=== PATIENT | male | born 1955 | race Two or more races ===

== ENCOUNTER 2021-07-07 06:19 | Outpatient (REF) | payer OTHER, SELFPAY ==
[2021-07-07 12:02] LABS: Blood Urea Nitrogen 11 mg/dL (9-16); Estimated Glomerular Filt Rate > 60
== END 2021-07-07 06:20 | disposition home or self-care (01) ==
LOC: HO.HMGCLDS 06:19
PROVIDERS: PCP Internal Medicine; Visit Provider Internal Medicine
DX: R10.31 Right lower quadrant pain (principal); R10.32 Left lower quadrant pain
CPT/HCPCS: 36415; 82565; 84520

== ENCOUNTER 2021-07-13 13:23 | Outpatient (REF) | payer OTHER, SELFPAY ==
--- NOTE | ~2021-07-13 | CT_ITS ---
EXAMINATION: CT ABDOMEN AND PELVIS WITH CONTRAST CLINICAL INFORMATION: Right lower quadrant pain COMPARISON: Previous CT of the abdomen and pelvis May 2014 TECHNIQUE: Multidetector volumetric images were obtained from the superior aspect of the liver through the pubic symphysis following administration 85 mL of Omnipaque 350 intravenous contrast. Sagittal and coronal reformatted images were obtained on the technologist's workstation. Oral contrast: Yes This CT examination was performed using dose optimization techniques as appropriate, variously including the following: *Automated exposure control *Adjustment of mA and/or kV according to patient size (this includes techniques or standardized protocols for targeted exams where dose is matched to indication/reason for exam; i.e. extremities or head) *Use of iterative reconstruction technique DLP: 495 mGy-cm FINDINGS: LUNG BASES: There is a 1 cm calcified left lower lobe nodule suggestive of a calcified granuloma or hamartoma. This is unchanged from 2013. The lung bases are otherwise clear. LIVER, GALLBLADDER, AND BILIARY TREE: The liver is normal in size, shape, and attenuation. No focal hepatic lesion or biliary ductal dilatation is present. The gallbladder is unremarkable with no evidence of radiopaque gallstones, gallbladder wall thickening, or obvious pericholecystic inflammatory changes. PANCREAS: Unremarkable. SPLEEN: Unremarkable. ADRENAL GLANDS: Unremarkable. KIDNEYS AND URETERS: The kidneys are normal in size, shape, and attenuation. No hydronephrosis, hydroureter, or calculi seen. There is a small 5 mm low-attenuation lesion in the lower pole the left kidney. This is difficult to characterize due to small size but probably represents a cyst. No follow-up needed. BLADDER: Unremarkable. GASTROINTESTINAL TRACT: There is diverticulosis of the colon. No evidence of diverticulitis is seen. The small and large bowel are otherwise unremarkable. The appendix is unremarkable. The stomach is unremarkable. ABDOMINAL WALL: There is an umbilical hernia containing fat. LYMPH NODES: Normal. VASCULAR: Unremarkable. PELVIC VISCERA: The prostate gland is slightly enlarged measuring 4 x 5.5 cm in AP and transverse dimension. OSSEOUS STRUCTURES: There are degenerative changes of the spine. CT/CT abdomen pelvis w con IMPRESSION: Diverticulosis. No evidence of diverticulitis. Probable small left renal cyst. Enlarged prostate gland. Stable calcified left lower lobe pulmonary nodule.
[2021-07-13] MEDS: iohexoL 350 MG/ML 100 ML INFUS..BTL IV (15:56)
== END 2021-07-13 13:24 | disposition home or self-care (01) ==
LOC: HO.CT 13:23
PROVIDERS: Visit Provider Internal Medicine
DX: R10.31 Right lower quadrant pain (principal); R10.32 Left lower quadrant pain
CPT/HCPCS: 74177; Q9967

== ENCOUNTER 2021-09-30 09:29 | Outpatient (REF) | payer OTHER, SELFPAY ==
[2021-09-30 11:47] LABS: Binax Internal Control QC Valid; Binax Now Covid-19 Ag Negative (Negative)
== END 2021-09-30 09:30 | disposition home or self-care (01) ==
LOC: HO.LAB 09:29
PROVIDERS: Visit Provider Internal Medicine
DX: Z20.822 Contact with and (suspected) exposure to COVID-19 (principal)
CPT/HCPCS: C9803

== ENCOUNTER 2022-12-13 09:37 | Outpatient (REF) | payer OTHER, SELFPAY ==
[2022-12-13 11:39] LABS: MANUAL DIFF FLAG NO
[2022-12-13 12:03] LABS: Basophils Percent Auto 0.3 % (0-2); Eosinophils Absolute Auto 0.1 X10*3/uL (0.0-0.4); Eosinophils Percent Auto 1.5 % (0-4); Hematocrit 45.2 % (42.0-52.0); Hemoglobin 15.6 g/dl (14.0-18.0); Imm Gran Abs Auto 0.02 X10*3/uL (0.00-0.03); Imm Gran Pct Auto 0.3 % (0.0-0.4); Lymphocytes Absolute Auto 1.8 X10*3/uL (1.2-4.9); Lymphocytes Percent Auto 24.4 % (20-40); Mean Corpuscular HGB Conc 34.5 g/dl (31.0-36.0); Mean Corpuscular Hemoglobin 31.7 pg (27.0-33.0); Mean Corpuscular Volume 91.9 fL (80.0-98.0); Mean Platelet Volume 9.4 fL (9.4-12.4); Monocytes Absolute Auto 0.4 X10*3/uL (0.1-1.2); Monocytes Percent Auto 5.4 % (2-11); Neutrophils Absolute Auto 5.1 x10*3/uL (2.0-8.3); Neutrophils Percent Auto 68.1 % (45-73); Platelet Count 276 X10*3/uL (160-400); Red Blood Count 4.92 X10*6/uL (4.60-5.80); Red Cell Distribution Width 13.8 % (11.0-16.0); White Blood Count 7.4 X10*3/uL (4.8-10.8)
[2022-12-13 12:20] LABS: Estimated Average Glucose 151 mg/dL; Hemoglobin A1c % 6.9 %
[2022-12-13 13:03] LABS: Alanine Aminotransferase 18 U/L (0-40); Anion Gap 12 (12-20); Aspartate Amino Transferase 18 U/L (5-37); Blood Urea Nitrogen 12 mg/dL (9-16); Calcium 9.3 mg/dL (8.4-10.2); Carbon Dioxide 28 mmol/L (22-29); Chloride 103 mmol/L (96-108); Cholesterol 204 mg/dL; Estimated Glomerular Filt Rate > 60; Glucose Fasting 132 mg/dL (60-99); HDL Cholesterol 36 mg/dL; LDL Cholesterol Calculated 118 mg/dl; Potassium 4.4 mmol/L (3.3-5.1); Sodium 139 mmol/L (135-145); Triglycerides 254 mg/dL
== END 2022-12-13 09:38 | disposition home or self-care (01) ==
LOC: HO.HMGCLDS 09:37
PROVIDERS: PCP Internal Medicine; Visit Provider Internal Medicine
DX: Z00.01 Encounter for general adult medical examination with abnormal findings (principal); D12.6 Benign neoplasm of colon, unspecified; E66.9 Obesity, unspecified; R73.01 Impaired fasting glucose
CPT/HCPCS: 36415; 80048; 80061; 83036; 84450; 84460; 85025

== ENCOUNTER 2022-12-14 12:49 | Inpatient (IN) | payer OTHER, SELFPAY ==
--- NOTE | ~2022-12-14 | FL_ITS ---
EXAMINATION: FL SMALL BOWEL SERIES CLINICAL INFORMATION: Small bowel obstruction. COMPARISON: None available. TECHNIQUE: Following a pet care attendant image of the abdomen, thin barium contrast was administered orally, and interval abdominal radiographs were performed to assess for contrast progression through the small bowel. Several images were obtained. FINDINGS: Audit Control Clerk image of the abdomen demonstrates distended proximal small bowel loops with the largest loop in the left upper quadrant measuring 6.1 cm. Following oral administration of Gastrografin patient vomited everything. Thin barium (2 cups) was administered and sequential images were obtained. There is good opacification and distention of stomach. There is slow progression of oral contrast from the stomach into duodenum and very slow progression through the proximal dilated small bowel loops. At 205 minutes of imaging contrast still lies in the proximal jejunal loops. At this point the exam was terminated and patient was shifted to the OR for surgery. FLUOROSCOPY TIME: 0.0 minutes. DOSE AREA PRODUCT: 0 uGy-m2 (microgray-meter squared) FL/FL small bowel follow through IMPRESSION: Findings consistent with proximal small bowel obstruction with no passage of barium through the proximal jejunal loops. The exam was terminated and patient was shifted to the OR for surgery.
--- NOTE | ~2022-12-14 | CT_ITS ---
EXAMINATION: CT ABDOMEN AND PELVIS WITHOUT CONTRAST CLINICAL INFORMATION: Abdominal distention with pain COMPARISON: CT abdomen and pelvis 07/13/2020 TECHNIQUE: Multidetector volumetric imaging was performed from the superior aspect of the liver through the pubic symphysis. Sagittal and coronal reformatted images were obtained on the technologist's workstation. This CT examination was performed using dose optimization techniques as appropriate, variously including the following: *Automated exposure control *Adjustment of mA and/or kV according to patient size (this includes techniques or standardized protocols for targeted exams where dose is matched to indication/reason for exam; i.e. extremities or head) *Use of iterative reconstruction technique DLP: 669 mGy-cm FINDINGS: LUNG BASES: The visualized lung bases are unremarkable. LIVER, GALLBLADDER, AND BILIARY TREE: The liver is normal in size and shape, but demonstrates decreased attenuation consistent with hepatic steatosis. No focal hepatic lesion or biliary ductal dilatation is present. The gallbladder is unremarkable with no evidence of radiopaque gallstones, gallbladder wall thickening, or obvious pericholecystic inflammatory changes. PANCREAS: Unremarkable. SPLEEN: Unremarkable. ADRENAL GLANDS: Unremarkable. KIDNEYS AND URETERS: The kidneys are normal in size, shape, and attenuation. No hydronephrosis, hydroureter, or calculi seen. No perinephric stranding. BLADDER: Unremarkable. GASTROINTESTINAL TRACT: Moderate diverticular changes are present in the colon without diverticulitis. The appendix is unremarkable. There is evidence of small bowel obstruction with dilatation of multiple small bowel loops the largest of which measure about 4.5 cm. The distal ileum is of small caliber the exact site of obstruction is not ascertained. No pneumatosis is present. No portal venous gas. ABDOMINAL WALL: No significant hernia is appreciated. Small periumbilical hernia seen containing only fat. LYMPH NODES: No retroperitoneal lymphadenopathy. VASCULAR: Unremarkable. PELVIC VISCERA: There is mild BPH. Seminal vesicles appear normal. Small amount of free fluid is present in the pelvis. OSSEOUS STRUCTURES: Degenerative changes in the spine most marked at L5-S1. CT/CT abdomen pelvis wo IV con IMPRESSION: 1. Small bowel obstruction with transition point somewhere in the mid small bowel.. 2. Incidental note made of hepatic steatosis, colonic diverticulosis without diverticulitis and mild BPH. Fleischner guidelines were followed.
[2022-12-14 12:53] VITALS: BP 163/95; PULSE 88; RESP 19; TEMP 36.6; O2SAT 96; BMI 31.2
--- NOTE | 2022-12-14 12:55 | ED_ITS ---
HPI - Abdominal Pain General Chief Complaint: Abdominal Pain <DIMA Ray - Last Filed: 12/14/22 12:58> Stated Complaint: Stomach Pain Bloated <DIMA Ray - Last Filed: 12/14/22 12:58> Time Seen by Provider: 12/14/22 15:21 <DIMA Ray - Last Filed: 12/14/22 12:58> Source: patient <DIMA Martines Last Filed: 12/14/22 17:17> Mode of arrival: ambulatory <DIMA Martines Last Filed: 12/14/22 17:17> Limitations: no limitations <DIMA Martines Last Filed: 12/14/22 17:17> History of Present Illness HPI narrative: Patient is a 67 year old assigned male at with a history of BPH presenting to the emergency department today with worsening abdominal pain. Patient states that over the last 2 days he has had worsening abdominal distention. Patient states that he has not had a complete bowel movement in days. Patient denies any history of abdominal surgeries. Patient states that he forced himself to vomit twice and that helped relieve some of the pressure. Patient denies any dizziness, lightheadedness, nausea, fever, chills, blurry vision, double vision, loss of vision, chest pain, difficulty breathing, shortness of breath, back pain, night sweats, pain with urination, increased urinary frequency, increased urinary urgency, blood in his urine or stool, syncope or a near syncopal episode, recent trauma or falls, bowel incontinence, bladder incontinence, bladder retention, or any other complaints at this time. <DIMA Martines - Last Filed: 12/14/22 17:17> MD elicited complaint: abdominal pain <DIMA Martines Last Filed: 12/14/22 17:17> Radiation: none <DIMA Martines Last Filed: 12/14/22 17:17> Exacerbating factors: nothing <DIMA Martines Last Filed: 12/14/22 17:17> Relieving factors: vomiting <DIMA Martines Last Filed: 12/14/22 17:17> Associated symptoms: nausea, vomiting and constipation <DIMA Martines Last Filed: 12/14/22 17:17> Related Data Home Medications: Home Medications Medication Instructions Recorded Confirmed tadalafil 20 mg tablet 5 mg PO DAILY 12/13/22 12/14/22 <DIMA Ray Last Filed: 12/14/22 12:58> Allergies/Adverse Reactions: Allergies Allergy/AdvReac Type Severity Reaction Status Date / Time No Known Allergies Allergy Verified 12/14/22 12:53 <DIMA Ray Last Filed: 12/14/22 12:58> Review of Systems Constitutional: Reports no additional constitutional complaints, Denies chills, Denies fever(s) and Denies night sweats <DIMA Martines Last Filed: 12/14/22 17:17> Eyes: Reports no additional eye complaints, Denies blurry vision, Denies change in vision, Denies diplopia, Denies eye discharge, Denies loss of vision and Denies eye pain <DIMA Martines Last Filed: 12/14/22 17:17> Denies dizziness <DIMA Martines Last Filed: 12/14/22 17:17> Cardiovascular: Reports no additional cardiovascular complaints, Denies chest pain, Denies lightheadedness, Denies Loss of Consciousness and Denies dyspnea <DIMA Martines Last Filed: 12/14/22 17:17> Respiratory: Reports no additional respiratory complaints and Denies dyspnea <DIMA Martines Last Filed: 12/14/22 17:17> Gastrointestinal: Reports no additional gastrointestinal complaints, Reports abdominal pain, Denies melena, Denies hematochezia, Denies change in bowel habits, Denies change in stool character, Reports constipation and Reports nausea <DIMA Martines Last Filed: 12/14/22 17:17> Genitourinary: Reports no additional male genitourinary complaints, Denies hematuria, Denies oliguria, Denies difficulty urinating, Denies dysuria, Denies urinary frequency, Denies urinary hesitancy, Denies urinary incontinence and Denies uri nary urgency <DIMA Martines Last Filed: 12/14/22 17:17> Musculoskeletal: Reports no additional musculoskeletal complaints, Denies numbness and Denies tingling <DIMA Martines - Last Filed: 12/14/22 17:17> Denies dizziness, Denies loss of vision, Denies numbness and Denies t ingling <DIMA Martines - Last Filed: 12/14/22 17:17> Psychiatric: Reports no additional psychiatric complaints <DIMA Martines - Last Filed: 12/14/22 17:17> Endocrine: Reports no additional endocrine complaints <DIMA Martines - Last Filed: 12/14/22 17:17> Hematologic/Lymphatic: Reports no additional hematologic/lymphatic complaints <DIMA Martines - Last Filed: 12/14/22 17:17> Allergic/Immunologic: Reports no additional allergic/immunologic complaints <DIMA Martines - Last Filed: 12/14/22 17:17> PMFSH Past Medical History Attestation statement: The following information was validated with the patient. <DIMA Martines - Last Filed: 12/14/22 17:17> Source: old records reviewed and nursing notes reviewed <DIMA Martines - Last Filed: 12/14/22 17:17> Medical History: Medical History Benign prostatic hyperplasia Obesity (BMI 30.0-34.9) Tubular adenoma of colon <DIMA Ray - Last Filed: 12/14/22 12:58> Surgical History: Surgical History History of vasectomy <DIMA Ray - Last Filed: 12/14/22 12:58> Family History Family History: Family History Sister Rheumatoid arthritis Son Autism <DIMA Ray - Last Filed: 12/14/22 12:58> Social History Social History: Social History Housing: Apartment Tobacco use type: Cigar e-Cigarette/Vaping Use: Never Used Second Hand Smoke Exposure: No Substance Use Type: Marijuana Advance Directives: No Advance Directives Information Provided: No Current occupational status: employed Cognitive needs: No Hearing needs: No Vision needs: Yes <DIMA Ray Last Filed: 12/14/22 12:58> Physical Exam ED Vital Signs: Vital Signs - 24 hr 12/14/22 12:53 12/14/22 15:21 Temperature 98 F 97.9 F Pulse Rate 88 71 Respiratory Rate 19 18 Blood Pressure 163/95 H 165/84 H Pulse Oximetry 96 97 Oxygen Delivery Method Room Air Room Air BMI result Body Mass Index 31.2 <DIMA Ray - Last Filed: 12/14/22 12:58> Vital Signs - 24 hr 12/14/22 12:53 12/14/22 15:21 Temperature 98 F 97.9 F Pulse Rate 88 71 Respiratory Rate 19 18 Blood Pressure 163/95 H 165/84 H Pulse Oximetry 96 97 Oxygen Delivery Method Room Air Room Air BMI result Body Mass Index 31.2 <DIMA Martines - Last Filed: 12/14/22 17:17> Const General: cooperative, no acute distress, alert and awake <DIMA Martines - Last Filed: 12/14/22 17:17> Nutritional Appearance: well nourished <DIMA Martines - Last Filed: 12/14/22 17:17> Orientation/consciousness: patient oriented x3 <DIMA Martines - Last Filed: 12/14/22 17:17> Limitations: no limitations <DIMA Martines - Last Filed: 12/14/22 17:17> HENMT Head: Yes normal to inspection and Yes atraumatic <DIMA Martines - Last Filed: 12/14/22 17:17> Ears: hearing grossly normal bilaterally and external ears normal <DIMA Martines - Last Filed: 12/14/22 17:17> General nose exam: Normal external nose present, no nasal discharge noted and no epistaxis <DIMA Martines Last Filed: 12/14/22 17:17> Face and sinus: Yes normal facial exam, No abrasion and No laceration <DIMA Martines - Last Filed: 12/14/22 17:17> Mouth: Normal oral and palatal mucosa present, no drooling and no muffled voice <DIMA Martines - Last Filed: 12/14/22 17:17> Eyes General: appearance normal, both eyes and all related structures <Melissa Marie PA - Last Filed: 12/14/22 17:17> Periorbital: periorbital findings normal <Melissa Marie PA - Last Filed: 12/14/22 17:17> Eyelids: Yes eyelids normal <Melissa Marie PA - Last Filed: 12/14/22 17:17> Conjunctivae: conjunctivae normal <Melissa Marie PA - Last Filed: 12/14/22 17:17> Pupils: Equal, round and reactive pupils present <Melissa Marie PA - Last Filed: 12/14/22 17:17> EOM: EOMs intact bilaterally <Melissa Marie PA - Last Filed: 12/14/22 17:17> Neck Neck: Yes normal visual inspection, Yes full ROM and Yes no lymphadenopathy <Melissa Marie PA - Last Filed: 12/14/22 17:17> Chest Chest palpation & inspection: normal inspection of the chest <Melissa Marie PA - Last Filed: 12/14 17:17> Resp Effort & Inspection: normal respiratory effort and able to speak in complete sentences <Kendy Marie PA - Last Filed: 12/14/22 17:17> Auscultation: clear to auscultation bilaterally <Melissa Marie PA - Last Filed: 12/14/22 17:17> Cardio Rate: regular rate <Melissa Marie PA - Last Filed: 12/14/22 17:17> Rhythm: regular rhythm <Melissa Marie PA - Last Filed: 12/14/22 17:17> GI Inspection: Yes distended <Melissa Marie PA - Last Filed: 12/14/22 17:17> Neuro General: patient oriented x3 and moves all extremities <Melissa Marie PA - Last Filed: 12/14/22 17:17> Cranial nerves: Yes Equal, round and reactive pupils present <Melissa Marie PA - Last Filed: 12/14/22 17:17> Cognition (Neuro): normal cognition <Melissa Marie PA - Last Filed: 12/14/22 17:17> Motor exam (neuro): 5/5 motor strength present throughout <Melissa Marie, PA - Last Filed: 12/14/22 17:17> Sensory Exam: Normal double simultaneous stimulation for sensation <Melissamilady PedroDIMA helm - Last Filed: 12/14/22 17:17> Coordination: [id number] test normal <Melissamilady PedroDIMA helm - Last Filed: 12/14/22 17:17> Extrem General: Yes normal to inspection, Yes full ROM and Yes capillary refill normal <DIMA Martines - Last Filed: 12/14/22 17:17> Psych Appearance: grossly normal <Melissamilady PedroDIMA helm - Last Filed: 12/14/22 17:17> Mental Status: mental status grossly normal <DIMA Martines - Last Filed: 12/14/22 17:17> Affect: normal affect <DIMA Martines - Last Filed: 12/14/22 17:17> Attitude: cooperative <DIMA Martines - Last Filed: 12/14/22 17:17> Thought process: Normal thought process present <DIMA Martines - Last Filed: 12/14/22 17:17> Thought content: Normal thought content present <DIMA Martines - Last Filed: 12/14/22 17:17> Insight: Good insight present (Psych) <DIMA Martines - Last Filed: 12/14/22 17:17> Course Course Course Narrative: RME - 67 yo male with history of obesity, BPH who presents to the ER for 2-3 days of increasing abdominal distention and pains. Reports only brief relief with self-induced vomiting. Not having normal BMs, very small amount yesterday. Has not eaten since yesterday. Plan: labs and CT scan abd/pelvis <DIMA Ray - Last Filed: 12/14/22 12:58> Medical Decision Making Medical Decision Making MDM Narrative: Patient is a 67 year old assigned male at with a history of BPH presenting to the emergency department today with abdominal pain. Patient's physical exam showed a distended abdomen. Patient's blood work was unremarkable. Patient's abdomen/pelvis CT showed an acute small bowel obstruction. I spoke to the surgical team who agreed to admission. I explained my physical exam findings as well as all test results to the patient. I answered all questions asked by e patient. Patient verbalized agreement and understanding with this treatment plan and admission. <DIMA Martines - Last Filed: 12/14/22 17:17> Differential Diagnosis Differential Diagnoses: The differential diagnosis associated with the presentation includes <DIMA Martines - Last Filed: 12/14/22 17:17> small bowel obstruction <DIMA Martines - Last Filed: 12/14/22 17:17> Consult Healthcare Provider Management of the patient was discussed with: Block Operator (spoke to the surgical team who agreed to admission) <DIMA Martines - Last Filed: 12/14/22 17:17> Lab Data MDM Lab Attestation statement: I reviewed the patient's lab results. <DIMA Martines - Last Filed: 12/14/22 17:17> Result Diagrams: 12/14/22 13:31 12/14/22 13:31 <DIMA Ray - Last Filed: 12/14/22 12:58> Labs: Lab Results 12/14/22 12/14/22 Range/Units 13:31 13:31 WBC 6.6 (4.8-10.8) X10*3/uL RBC 4.82 (4.60-5.80) X10*6/uL Hgb 15.1 (14.0-18.0) g/dl Hct 44.0 (42.0-52.0) % MCV 91.3 (80.0-98.0) fL MCH 31.3 (27.0-33.0) pg MCHC 34.3 (31.0-36.0) g/dl RDW 13.4 (11.0-16.0) % Plt Count 256 (160-400) X10*3/uL MPV 8.8 L (9.4-12.4) fL Immature Gran % (Auto) 0.3 (0.0-0.4) % Neut % (Auto) 69.1 (45-73) % Lymph % (Auto) 22.5 (20-40) % [place] % (Auto) 6.8 (2-11) % Eos % (Auto) 1.1 (0-4) % Baso % (Auto) 0.2 (0-2) % Lymph # (Auto) 1.5 (1.2-4.9) X10*3/uL [place] # (Auto) 0.5 (0.1-1.2) X10*3/uL Eos # (Auto) 0.1 (0.0-0.4) X10*3/uL Baso # (Auto) 0.0 (0.0-0.2) X10*3/uL Abs Immat Gran (auto) 0.02 (0.00-0.03) X10*3/uL Absolute Neuts (auto) 4.6 (2.0-8.3) x10*3/uL Absolute Nucleated RBC 0.000 (0.0-0.012) X10*3/uL Nucleated RBC % (auto) 0.0 (0.0-0.2) /100WBC Sodium 139 (135-145) mmol/L Potassium 4.6 (3.3-5.1) mmol/L Chloride 102 (96-108) mmol/L Carbon Dioxide 27 (22-29) mmol/L Anion Gap 15 (12-20) BUN 13 (9-16) mg/dL Creatinine 1.08 (0.5-1.4) mg/dL Estim Creat Clear Calc 77.9 Estimated GFR > 60 Random Glucose 142 H (60-115) mg/dL Calcium 9.2 (8.4-10.2) mg/dL Magnesium 2.6 (1.6-2.6) mg/dL Total Bilirubin 0.9 (0.0-1.0) mg/dL Direct Bilirubin 0.2 (0.0-0.5) mg/dL AST 14 (5-37) U/L ALT 14 (0-40) U/L Alkaline Phosphatase 55 (39-117) U/L Total Protein 7.0 (6.5-8.0) g/dL Albumin 4.2 (3.5-5.0) g/dL <DIMA Ray - Last Filed: 12/14/22 12:58> Lab Results 12/14/22 12/14/22 Range/Units 13:31 13:31 WBC 6.6 (4.8-10.8) X10*3/uL RBC 4.82 (4.60-5.80) X10*6/uL Hgb 15.1 (14.0-18.0) g/dl Hct 44.0 (42.0-52.0) % MCV 91.3 (80.0-98.0) fL MCH 31.3 (27.0-33.0) pg MCHC 34.3 (31.0-36.0) g/dl RDW 13.4 (11.0-16.0) % Plt Count 256 (160-400) X10*3/uL MPV 8.8 L (9.4-12.4) fL Immature Gran % (Auto) 0.3 (0.0-0.4) % Neut % (Auto) 69.1 (45-73) % Lymph % (Auto) 22.5 (20-40) % [place] % (Auto) 6.8 (2-11) % Eos % (Auto) 1.1 (0-4) % Baso % (Auto) 0.2 (0-2) % Lymph # (Auto) 1.5 (1.2-4.9) X10*3/uL [place] # (Auto) 0.5 (0.1-1.2) X10*3/uL Eos # (Auto) 0.1 (0.0-0.4) X10*3/uL Baso # (Auto) 0.0 (0.0-0.2) X10*3/uL Abs Immat Gran (auto) 0.02 (0.00-0.03) X10*3/uL Absolute Neuts (auto) 4.6 (2.0-8.3) x10*3/uL Absolute Nucleated RBC 0.000 (0.0-0.012) X10*3/uL Nucleated RBC % (auto) 0.0 (0.0-0.2) /100WBC Sodium 139 (135-145) mmol/L Potassium 4.6 (3.3-5.1) mmol/L Chloride 102 (96-108) mmol/L Carbon Dioxide 27 (22-29) mmol/L Anion Gap 15 (12-20) BUN 13 (9-16) mg/dL Creatinine 1.08 (0.5-1.4) mg/dL Estim Creat Clear Calc 77.9 Estimated GFR > 60 Random Glucose 142 H (60-115) mg/dL Calcium 9.2 (8.4-10.2) mg/dL Magnesium 2.6 (1.6-2.6) mg/dL Total Bilirubin 0.9 (0.0-1.0) mg/dL Direct Bilirubin 0.2 (0.0-0.5) mg/dL AST 14 (5-37) U/L ALT 14 (0-40) U/L Alkaline Phosphatase 55 (39-117) U/L Total Protein 7.0 (6.5-8.0) g/dL Albumin 4.2 (3.5-5.0) g/dL <DIMA Martines - Last Filed: 12/14/22 17:17> Independent Interpretation I performed an independent interpretation of an: CT Scan <DIMA Martines - Last Filed: 12/14/22 17:17> Interpretation: My interpretation is in agreement with the radiologist's impression of this imaging study. ----- EXAMINATION: CT ABDOMEN AND PELVIS WITHOUT CONTRAST? CLINICAL INFORMATION: Abdominal distention with pain? COMPARISON: CT abdomen and pelvis 07/13/2020? TECHNIQUE: Multidetector volumetric imaging was performed from the superior aspect of the liver through the pubic symphysis. Sagittal and coronal reformatted images were obtained on the technologist's workstation.? This CT examination was performed using dose optimization techniques as appropriate, variously including the following: *Automated exposure control *Adjustment of mA and/or kV according to patient size (this includes techniques or standardized protocols for targeted exams where dose is matched to indication/reason for exam; i.e. extremities or head) *Use of iterative reconstruction technique DLP: 669 mGy-cm FINDINGS: LUNG BASES: The visualized lung bases are unremarkable.? LIVER, GALLBLADDER, AND BILIARY TREE: The liver is normal in size and shape, but demonstrates decreased attenuation consistent with hepatic steatosis.? No focal hepatic lesion or biliary ductal dilatation is present. The gallbladder is unremarkable with no evidence of radiopaque gallstones, gallbladder wall thickening, or obvious pericholecystic inflammatory changes.? PANCREAS: Unremarkable.? SPLEEN: Unremarkable.? ADRENAL GLANDS: Unremarkable.? KIDNEYS AND URETERS: The kidneys are normal in size, shape, and attenuation. No hydronephrosis, hydroureter, or calculi seen. No perinephric stranding. ? BLADDER: Unremarkable.? GASTROINTESTINAL TRACT: Moderate diverticular changes are present in the colon without diverticulitis. The appendix is unremarkable. There is evidence of small bowel obstruction with dilatation of multiple small bowel loops the largest of which measure about 4.5 cm. The distal ileum is of small caliber the exact site of obstruction is not ascertained. No pneumatosis is present. No portal venous gas. ABDOMINAL WALL: No significant hernia is appreciated. Small periumbilical hernia seen containing only fat. LYMPH NODES: No retroperitoneal lymphadenopathy. VASCULAR: Unremarkable. PELVIC VISCERA: There is mild BPH. Seminal vesicles appear normal. Small amount of free fluid is present in the pelvis. ? OSSEOUS STRUCTURES: Degenerative changes in the spine most marked at L5-S1.? CT/CT abdomen pelvis wo IV con IMPRESSION: 1.? Small bowel obstruction with transition point somewhere in the mid small bowel.. 2.? Incidental note made of hepatic steatosis, colonic diverticulosis without diverticulitis and mild BPH. ? Fleischner guidelines were followed Dictated By: Stephen Jessica MD Signed By: Electronically signed by Stephen Jessica MD 12/14/22 [id number] <DIMA Martines - Last Filed: 12/14/22 17:17> Critical Care Time Critical Care Time Critical Care Time: Yes <DIMA Martines - Last Filed: 12/14/22 17:17> Total Critical Care Time: 30 <DIMA Martines - Last Filed: 12/14/22 17:17> Attestation: I spent 30 minutes of Critical Care Time with this patient. This does not include time spent on separately reported billable procedures. <IDMA Martines - Last Filed: 12/14/22 17:17> Discharge Plan Discharge Clinical Impression: Small bowel obstruction <DIMA Ray - Last Filed: 12/14/22 12:58> Patient Disposition: Admitted As Inpatient <DIMA Ray - Last Filed: 12/14/22 12:58>
[2022-12-14 13:34] LABS: MANUAL DIFF FLAG NO
[2022-12-14 13:37] LABS: Basophils Percent Auto 0.2 % (0-2); Eosinophils Absolute Auto 0.1 X10*3/uL (0.0-0.4); Eosinophils Percent Auto 1.1 % (0-4); Hemoglobin 15.1 g/dl (14.0-18.0); Imm Gran Abs Auto 0.02 X10*3/uL (0.00-0.03); Imm Gran Pct Auto 0.3 % (0.0-0.4); Lymphocytes Absolute Auto 1.5 X10*3/uL (1.2-4.9); Lymphocytes Percent Auto 22.5 % (20-40); Mean Corpuscular HGB Conc 34.3 g/dl (31.0-36.0); Mean Corpuscular Hemoglobin 31.3 pg (27.0-33.0); Mean Corpuscular Volume 91.3 fL (80.0-98.0); Mean Platelet Volume 8.8 fL (9.4-12.4); Monocytes Absolute Auto 0.5 X10*3/uL (0.1-1.2); Monocytes Percent Auto 6.8 % (2-11); Neutrophils Absolute Auto 4.6 x10*3/uL (2.0-8.3); Neutrophils Percent Auto 69.1 % (45-73); Platelet Count 256 X10*3/uL (160-400); Red Blood Count 4.82 X10*6/uL (4.60-5.80); Red Cell Distribution Width 13.4 % (11.0-16.0); White Blood Count 6.6 X10*3/uL (4.8-10.8)
[2022-12-14 13:52] LABS: Alanine Aminotransferase 14 U/L (0-40); Albumin Level 4.2 g/dL (3.5-5.0); Alkaline Phosphatase 55 U/L (39-117); Anion Gap 15 (12-20); Aspartate Amino Transferase 14 U/L (5-37); Bilirubin Direct 0.2 mg/dL (0.0-0.5); Bilirubin Total 0.9 mg/dL (0.0-1.0); Blood Urea Nitrogen 13 mg/dL (9-16); Calcium 9.2 mg/dL (8.4-10.2); Carbon Dioxide 27 mmol/L (22-29); Chloride 102 mmol/L (96-108); Creatinine Clr Calc Pharmacy 77.9; Estimated Glomerular Filt Rate > 60; Glucose Random 142 mg/dL (60-115); Magnesium 2.6 mg/dL (1.6-2.6); Potassium 4.6 mmol/L (3.3-5.1); Sodium 139 mmol/L (135-145)
[2022-12-14 15:21] VITALS: BP 165/84; PULSE 71; RESP 18; TEMP 36.6; O2SAT 97
--- NOTE | 2022-12-14 16:13 | PHA.MEDREC ---
Pharmacy Consult ? Medication Reconciliation Pharmacy has completed the medication reconciliation. Patient takes tadalafil for prostate Anuj
--- NOTE | 2022-12-14 16:51 | PM.PNGS ---
Subjective Subjective Date of Service: 12/14/22 Interval history: Patient is a 67 year old male with a history of BPH presenting to the emergency department with worsening abdominal distention. Patient states that over the last 2 days he has had worsening abd Physical Exam Vital Signs: Vital Signs: Last Vital Signs Temp 97.9 F 12/14/22 15:21 Pulse 71 12/14/22 15:21 Resp 18 12/14/22 15:21 BP 165/84 H 12/14/22 15:21 Pulse Ox 97 12/14/22 15:21 O2 Del Method Room Air 12/14/22 15:21 BMI result Body Mass Index 31.2 Const: General: comfortable, no acute distress and alert Orientation/consciousness: patient oriented x3 Resp: Effort & Inspection: normal respiratory effort GI: Inspection: Yes distended and No scar Palpation (GI): Soft to palpation, nontender, no guarding and not rigid Percussion: Yes tympanic to percussion Skin: General skin exam: no rashes or lesions noted Neuro: General: patient oriented x3 and moves all extremities Extrem: General: Yes no clubbing, cyanosis or edema Objective Data Active Medications Pharmacy Consult (Consult Rx Perform Med Rec) 1 each MISCELLANE ONCE PRN PRN Reason: Consult order Labs 12/14/22 13:31 12/14/22 13:31 Labs: Laboratory Results - last 24 hr 12/14/22 12/14/22 13:31 13:31 MCV 91.3 MCH 31.3 MCHC 34.3 RDW 13.4 Plt Count 256 MPV 8.8 L Immature Gran % (Auto) 0.3 Neut % (Auto) 69.1 Lymph % (Auto) 22.5 [place] % (Auto) 6.8 Eos % (Auto) 1.1 Baso % (Auto) 0.2 Lymph # (Auto) 1.5 [place] # (Auto) 0.5 Eos # (Auto) 0.1 Baso # (Auto) 0.0 Abs Immat Gran (auto) 0.02 Absolute Neuts (auto) 4.6 Absolute Nucleated RBC 0.000 Nucleated RBC % (auto) 0.0 Anion Gap 15 Estim Creat Clear Calc 77.9 Estimated GFR > 60 Random Glucose 142 H Calcium 9.2 Magnesium 2.6 Total Bilirubin 0.9 Direct Bilirubin 0.2 AST 14 ALT 14 Alkaline Phosphatase 55 Total Protein 7.0 Albumin 4.2 Progress Note: A&P Assessment and plan (1) Small bowel obstruction: Status: Acute Plan 67 year old male with PMH of BPH who presented with obstipation and abd distention with CT scan showing dilated small bowel loops consistent with SBO. Patient admitted to the surgical service for further treatment of the SBO. He is actually well appearing and not currently vomiting and therefore NGT will be held. Will cont bowel rest, IVF, analgesics PRN. Discussed with him if he develops nausea or vomiting NGT should be inserted. He was encouraged to ambulate. Unclear etiology of SBO, which is likely partial as he has good air in rectum. He has transition to decompressed loops in the mid abdomen with ?tapering of the small bowel. If no clinical improvement tomorrow, will obtain SBFT with gastrografin to further assess. Patient comfortable with plan. Time Spent With Patient Time: Total time managing care of this patient today ____ minutes. Quality VTE VTE Risk Level:: Medical - low VTE Device Contraindication: N/A - Device Ordered VTE Drug Contraindication: Treatment Not Indicated
--- NOTE | 2022-12-14 17:05 | P.HPGS_ITS ---
As noted. For small-bowel follow-through. History of Present Illness History of Present Illness Date of Service: 12/14/22 <Virginia Mesa PA-C - Last Filed: 12/14/22 17:10> 12/15/22 <Donaldo Lofton MD - Last Filed: 12/15/22 09:12> Chief complaint: PSBO <Virginia Mesa PA-C - Last Filed: 12/14/22 17:10> Narrative: 67 year old male with PMH of BPH who presented to the ED with worsening abdominal distention. He reports this began two days ago. He denies significant associated pain but reports diffuse discomfort due to the bloating. He has not passed gas or had a normal BM since the bloating began on Monday. He reports he is not nauseous but made himself vomit twice to relieve some of the pressure. Patient denies any history of abdominal surgeries. <Virginia Mesa PA-C - Last Filed: 12/14/22 17:10> Review of Systems Constitutional: Constitutional: Denies chills and Denies fever(s) <Virginia Mesa PA-C - Last Filed: 12/14/22 17:10> ENT: Denies dizziness <Virginia Mesa PA-C - Last Filed: 12/14/22 17:10> Cardiovascular: Cardiovascular: Denies chest pain and Denies dyspnea <JOHANN Caba Last Filed: 12/14/22 17:10> Respiratory: Respiratory: Denies dyspnea <Virginia Mesa PA-C - Last Filed: 12/14/22 17:10> Gastrointestinal: Gastrointestinal: Reports as per HPI, Reports abdominal pain, Reports bloating, Denies nausea and Reports vomiting <Virginia Mesa PA-C - Last Filed: 12/14/22 17:10> Genitourinary: Genitourinary: Denies hematuria and Denies dysuria <JOHANN Caba Last Filed: 12/14/22 17:10> Integumentary/Breasts: Skin/Breast: Denies rash and Denies jaundice <Virginia Mesa PA-C - Last Filed: 12/14/22 17:10> Neurologic: Denies dizziness <Virginia Mesa PA-C - Last Filed: 12/14/22 17:10> [facility] Past Medical History Medical History: Medical History Benign prostatic hyperplasia Obesity (BMI 30.0-34.9) Tubular adenoma of colon <Virginia Mesa PA-C - Last Filed: 12/14/22 17:10> Family History Family History: Family History Sister Rheumatoid arthritis Son Autism <Virginia Mesa PA-C - Last Filed: 12/14/22 17:10> Surgical History Surgical History: Surgical History History of vasectomy <Virginia Mesa PA-C - Last Filed: 12/14/22 17:10> Social History Social History: Social History Household Members: Spouse and Children Housing: Apartment Do you presently have visiting nurse or other home services: No Patient Tobacco Use Status: Current someday Tobacco user Tobacco use type: Cigar Smoked in Last 30 Days: No e-Cigarette/Vaping Use: Never Used Second Hand Smoke Exposure: No Use of substances other than those prescribed or required for medical reasons: Yes Substance Use Type: Marijuana Substance Use Frequency: Occasionally Last Used Substance: Days (ago) Have you been hit, kicked, punched, or otherwise hurt by someone within the past year? If so, by whom?: No Do you feel safe in your current relationship?: Yes Is there a partner from a previous relationship who is making you feel unsafe now?: No Are you made to feel afraid or neglected: No Advance Directives: No Advance Directives Information Provided: No Do you have thoughts of harming others: None Do you have a plan to hurt others: No Plan Recently lost weight without trying: No Eating poorly because of decreased appetite: No Nutrition Risks: No Nutritional Risk Poor oral hygiene: No Current occupational status: employed Cognitive needs: No Hearing needs: No Vision needs: Yes <Virginia Mesa PA-C - Last Filed: 12/14/22 17:10> Meds Allergies/Adverse reactions: Allergies Allergy/AdvReac Type Severity Reaction Status Date / Time No Known Allergies Allergy Verified 12/14/22 12:53 <Virginia Mesa PA-C - Last Filed: 12/14/22 17:10> Active Medications: Current Medications Acetaminophen (Acetaminophen 325 Mg Tablet) 650 mg PO Q6H PRN PRN Reason: Pain, Mild (Pain Scale 1-3) Sodium Chloride (Ns) 1,000 mls @ 100 mls/hr IVCONT .Q10H [facility] Ketorolac Tromethamine (Ketorolac Tromethamine 30 Mg/Ml Vial) 15 mg IVPUSH Q6H PRN PRN Reason: Pain, Mild (Pain Scale 1-3) Stop: 12/19/22 16:47 Morphine Sulfate (Morphine Sulfate 4 Mg/Ml Cartridge) 4 mg IVPUSH Q4H PRN; Protocol PRN Reason: Pain, Severe (Pain Scale 7-10) Ondansetron HCl (Ondansetron Hcl 4 Mg/2 Ml Vial) 4 mg IVPUSH Q8H PRN PRN Reason: Nausea and Vomiting Oxycodone HCl (Oxycodone Hcl Immed Release 5 Mg Tablet) 5 mg PO Q6H PRN PRN Reason: Pain, Moderate (Pain Scale 4-6 Pharmacy Consult (Consult Rx Perform Med Rec) 1 each MISCELLANE ONCE PRN PRN Reason: Consult order Sodium Chloride (0.9 % Sodium Chloride Flush 3 Ml Syringe) 3 ml IVFLUSH QSHIFT [facility] <Virginia Mesa PA-C - Last Filed: 12/14/22 17:10> Home medications: Home Medications Medication Instructions Recorded Confirmed Last Taken Type tadalafil 20 mg tablet 5 mg PO DAILY 12/13/22 12/14/22 12/13/22 History <JOHANN Caba Last Filed: 12/14/22 17:10> Physical Exam Vital Signs: Vital Signs: Last Vital Signs Temp 97.9 F 12/14/22 15:21 Pulse 71 12/14/22 15:21 Resp 18 12/14/22 15:21 BP 165/84 H 12/14/22 15:21 Pulse Ox 97 12/14/22 15:21 O2 Del Method Room Air 12/14/22 15:21 BMI result Body Mass Index 31.2 <Virginia Simdeau JOHANN - Last Filed: 12/14/22 17:10> Const: General: comfortable, no acute distress and alert <Virginia Simdeau JOHANN Kelly Last Filed: 12/14/22 17:10> Orientation/consciousness: patient oriented x3 <Virginia Simmerle JOHANN Last Filed: 12/14/22 17:10> Resp: Effort & Inspection: normal respiratory effort <Virginia Simdeau JOHANN - Last Filed: 12/14/22 17:10> Cardio: Rate: regular rate <Virginia Simdeau JOHANN Last Filed: 12/14/22 17:10> GI: Inspection: Yes distended and No scar <Virginia Simmerle JOHANN Kelly Last Filed: 12/14/22 17:10> Palpation (GI): Soft to palpation, nontender, no guarding and not rigid <Virginia Mccoyjose miguel TYLOR Last Filed: 12/14/22 17:10> Percussion: Yes tympanic to percussion <Virginia Simmerle TYLOR Last Filed: 12/14/22 17:10> Skin: General skin exam: no rashes or lesions noted <Virginia Simdeau TYLOR Leticia Last Filed: 12/14/22 17:10> Neuro: General: patient oriented x3 and moves all extremities <Virginia Mccoyjose miguel JOHANN Last Filed: 12/14/22 17:10> Extrem: General: Yes no clubbing, cyanosis or edema <Virginia Mccoyjose miguel TYLOR Leticia Last Filed: 12/14/22 17:10> Results Results Labs: Short CBC 12/14/22 Range/Units 13:31 WBC 6.6 (4.8-10.8) X10*3/uL Hgb 15.1 (14.0-18.0) g/dl Hct 44.0 (42.0-52.0) % Plt Count 256 (160-400) X10*3/uL BMP 12/14/22 13:31 Sodium 139 Potassium 4.6 Chloride 102 Carbon Dioxide 27 BUN 13 Creatinine 1.08 Calcium 9.2 Liver Function 12/14/22 Range/Units 13:31 Total Bilirubin 0.9 (0.0-1.0) mg/dL Direct Bilirubin 0.2 (0.0-0.5) mg/dL AST 14 (5-37) U/L ALT 14 (0-40) U/L Alkaline Phosphatase 55 (39-117) U/L Albumin 4.2 (3.5-5.0) g/dL <JOHANN Caba Last Filed: 12/14/22 17:10> Abdomen CT scan report/results: report reviewed and image reviewed <JOHANN Caba Last Filed: 12/14/22 17:10> Assessment and Plan (1) Small bowel obstruction: Status: Acute <JOHANN Caba Last Filed: 12/14/22 17:10> 67 year old male with PMH of BPH who presented with obstipation and abd distention with CT scan showing dilated small bowel loops consistent with SBO. Patient admitted to the surgical service for further treatment of the SBO. He is actually well appearing and not currently vomiting and therefore NGT will be held. Will cont bowel rest, IVF, analgesics PRN. Discussed with him if he develops nausea or vomiting NGT should be inserted. He was encouraged to ambulate. Unclear etiology of SBO, which is likely partial as he has good air in rectum. He has transition to decompressed loops in the mid abdomen with ?tapering of the small bowel. If no clinical improvement tomorrow, will obtain SBFT with gastrografin to further assess. Patient comfortable with plan. <Virginia Mesa PA-C - Last Filed: 12/14/22 17:10> Time Spent With Patient Time: Total time managing care of this patient today ____ minutes. <JOHANN Caba Last Filed: 12/14/22 17:10> Quality Stroke Does the patient have a stroke diagnosis?: No <Donaldo Lofton MD - Last Filed: 12/15/22 09:12> VTE Prior VTE?: No <Donaldo Lofton MD - Last Filed: 12/15/22 09:12> VTE Risk Level:: Medical - low <Virginia Mesa PA-C - Last Filed: 12/14/22 17:10> VTE Device Contraindication: N/A - Device Ordered <Virginia Mesa PA-C - Last Filed: 12/14/22 17:10> VTE Drug Contraindication: Treatment Not Indicated <Virginia Mesa PA-C - Last Filed: 12/14/22 17:10> Procedures Date of Service Date of Service: 12/15/22 <Donaldo Lofton MD - Last Filed: 12/15/22 09:12>
[2022-12-14] MEDS: 0.9 % Sodium Chloride 1,000 ML 100 ML IVCONT (17:17)
--- NOTE | 2022-12-14 17:30 | PC.NURSE ---
Alert and oriented, resp even and unlabored. IV established, fluids infusing. Pt denies any pain only reporting abd discomfort. Aware of plan for obs at this time. Call nobles within reach.
[2022-12-14] MEDS: ondansetron HCL 4 MG/2 ML VIAL IVPUSH (18:23)
--- NOTE | 2022-12-14 18:24 | PC.NURSE ---
Pt vomited large amount into the sink in room. Pt medicated for nausea, reporting relief in abd discomfort after vomiting.
[2022-12-14 19:23] VITALS: BP 137/71; PULSE 77; RESP 16; TEMP 36.9; O2SAT 98
--- NOTE | 2022-12-14 19:33 | MHC.EDTECH ---
this pct assumed care of pt at 1900 ,pt vitals sign taken and covid swab collected and sent to lab .
[2022-12-14 19:48] LABS: COVID-19 Test Negative (Negative); IDNOW Serial# BCCEAD1C
[2022-12-14 22:10] VITALS: BP 149/77; PULSE 77; RESP 18; TEMP 36.9; O2SAT 99
--- NOTE | 2022-12-14 23:15 | PC.NURSE ---
Report received from Monalisa DAY.
[2022-12-15] VITALS (16 sets, daily range): BP systolic 122–159; BP diastolic 58–91; PULSE 68–84; RESP 12–20; TEMP 36–37.1; O2SAT 94–99; BMI 29.7
--- NOTE | 2022-12-15 00:16 | PC.NURSE ---
Pt resting quietly with eyes closed. Respirations even and unlabored. No acute distress noted.
--- NOTE | 2022-12-15 02:00 | PC.NURSE ---
Pillow provider per request. Denies any other needs at this time.
[2022-12-15] MEDS: 0.9 % Sodium Chloride 1,000 ML 100 ML IVCONT ×2 (03:11→22:27)
--- NOTE | 2022-12-15 03:46 | PC.NURSE ---
Report to Ashley DAY on S3.
[2022-12-15 06:34] LABS: Anion Gap 16 (12-20); Blood Urea Nitrogen 16 mg/dL (9-16); Calcium 8.4 mg/dL (8.4-10.2); Carbon Dioxide 22 mmol/L (22-29); Chloride 104 mmol/L (96-108); Creatinine Clr Calc Pharmacy 93.4; Estimated Glomerular Filt Rate > 60; Glucose Random 126 mg/dL (60-115); Potassium 4.2 mmol/L (3.3-5.1); Sodium 138 mmol/L (135-145)
[2022-12-15 07:39] LABS: MANUAL DIFF FLAG NO
[2022-12-15 07:41] LABS: Basophils Percent Auto 0.2 % (0-2); Eosinophils Absolute Auto 0.1 X10*3/uL (0.0-0.4); Eosinophils Percent Auto 1.3 % (0-4); Hematocrit 40.9 % (42.0-52.0); Hemoglobin 14.1 g/dl (14.0-18.0); Imm Gran Abs Auto 0.01 X10*3/uL (0.00-0.03); Imm Gran Pct Auto 0.2 % (0.0-0.4); Lymphocytes Absolute Auto 1.3 X10*3/uL (1.2-4.9); Lymphocytes Percent Auto 20.9 % (20-40); Mean Corpuscular HGB Conc 34.5 g/dl (31.0-36.0); Mean Corpuscular Hemoglobin 31.4 pg (27.0-33.0); Mean Corpuscular Volume 91.1 fL (80.0-98.0); Mean Platelet Volume 9.4 fL (9.4-12.4); Monocytes Absolute Auto 0.6 X10*3/uL (0.1-1.2); Monocytes Percent Auto 10.5 % (2-11); Neutrophils Percent Auto 66.9 % (45-73); Platelet Count 243 X10*3/uL (160-400); Red Blood Count 4.49 X10*6/uL (4.60-5.80); Red Cell Distribution Width 13.5 % (11.0-16.0)
--- NOTE | 2022-12-15 07:46 | P.PNGS_ITS ---
Subjective Subjective Date of Service: 12/15/22 <Virginia Mesa PA-C - Last Filed: 12/15/22 07:47> 12/15/22 <Donaldo Lofton MD - Last Filed: 12/15/22 09:13> Interval history: Did vomit once last night. Overall feels better this morning and has passed some flatus and small bm. Still bloated. <Virginia Mesa PA-C - Last Filed: 12/15/22 07:47> Physical Exam Vital Signs: Vital Signs: Last Vital Signs Temp 97.2 F 12/15/22 04:31 Pulse 70 12/15/22 04:31 Resp 18 12/15/22 04:31 BP 136/66 12/15/22 04:31 Pulse Ox 95 12/15/22 04:31 O2 Del Method Room Air 12/15/22 04:31 BMI result Body Mass Index 29.7 <Virginia Mesa PA-C - Last Filed: 12/15/22 07:47> Const: General: comfortable, no acute distress and alert <Virginia Mesa PA-C - Last Filed: 12/15/22 07:47> Orientation/consciousness: patient oriented x3 <Virginia Mesa PA-C - Last Filed: 12/15/22 07:47> Resp: Effort & Inspection: normal respiratory effort <Virginia Mesa PA-C - Last Filed: 12/15/22 07:47> Cardio: Rate: regular rate <Virginia Mesa PA-C - Last Filed: 12/15/22 07:47> GI: Other: protuberant <Virginia Mesa PA-C - Last Filed: 12/15/22 07:47> Inspection: Yes distended (softly) and No scar <JOHANN Caba Last Filed: 12/15/22 07:47> Palpation (GI): Soft to palpation, nontender, no guarding and not rigid <JOHANN Caba Last Filed: 12/15/22 07:47> Percussion: Yes tympanic to percussion <JOHANN Caba Last Filed: 12/15/22 07:47> Skin: General skin exam: no rashes or lesions noted <Virginia Mesa PA-C - Last Filed: 12/15/22 07:47> Neuro: General: patient oriented x3 <Virginia Mesa PA-C - Last Filed: 12/15/22 07:47> Objective Data Active Medications Acetaminophen (Acetaminophen 325 Mg Tablet) 650 mg PO Q6H PRN PRN Reason: Pain, Mild (Pain Scale 1-3) Sodium Chloride (Ns) 1,000 mls @ 100 mls/hr IVCONT .Q10H [facility] Last Admin: 12/15/22 03:11 Dose: 100 mls/hr Documented By: STEVEN Ketorolac Tromethamine (Ketorolac Tromethamine 30 Mg/Ml Vial) 15 mg IVPUSH Q6H PRN PRN Reason: Pain, Mild (Pain Scale 1-3) Stop: 12/19/22 16:47 Morphine Sulfate (Morphine Sulfate 4 Mg/Ml Cartridge) 4 mg IVPUSH Q4H PRN; Protocol PRN Reason: Pain, Severe (Pain Scale 7-10) Ondansetron HCl (Ondansetron Hcl 4 Mg/2 Ml Vial) 4 mg IVPUSH Q8H PRN PRN Reason: Nausea and Vomiting Last Admin: 12/14/22 18:23 Dose: 4 mg Documented By: BRIANNE Oxycodone HCl (Oxycodone Hcl Immed Release 5 Mg Tablet) 5 mg PO Q6H PRN PRN Reason: Pain, Moderate (Pain Scale 4-6 Pharmacy Consult (Consult Rx Perform Med Rec) 1 each MISCELLANE ONCE PRN PRN Reason: Consult order Sodium Chloride (0.9 % Sodium Chloride Flush 3 Ml Syringe) 3 ml IVFLUSH QSHIFT [facility] Last Admin: 12/15/22 07:16 Dose: Not Given Documented By: JESSE Non-Admin Reason: IV Running <Virginia Mesa PA-C - Last Filed: 12/15/22 07:47> Labs CBC & Chem 7: 12/15/22 05:11 12/15/22 05:11 <Virginia Mesa PA-C - Last Filed: 12/15/22 07:47> Labs: Laboratory Results - last 24 hr 03/29/23 03/29/23 03/29/23 13:31 13:31 19:29 MCV 91.3 MCH 31.3 MCHC 34.3 RDW 13.4 Plt Count 256 MPV 8.8 L Immature Gran % (Auto) 0.3 Neut % (Auto) 69.1 Lymph % (Auto) 22.5 [place] % (Auto) 6.8 Eos % (Auto) 1.1 Baso % (Auto) 0.2 Lymph # (Auto) 1.5 [place] # (Auto) 0.5 Eos # (Auto) 0.1 Baso # (Auto) 0.0 Abs Immat Gran (auto) 0.02 Absolute Neuts (auto) 4.6 Absolute Nucleated RBC 0.000 Nucleated RBC % (auto) 0.0 Anion Gap 15 Estim Creat Clear Calc 77.9 Estimated GFR > 60 Random Glucose 142 H Calcium 9.2 Magnesium 2.6 Total Bilirubin 0.9 Direct Bilirubin 0.2 AST 14 ALT 14 Alkaline Phosphatase 55 Total Protein 7.0 Albumin 4.2 COVID-19 ([facility]) Negative COVID-19 Clin Com See Note 12/15/22 12/15/22 05:11 05:11 MCV 91.1 MCH 31.4 MCHC 34.5 RDW 13.5 Plt Count 243 MPV 9.4 Immature Gran % (Auto) 0.2 Neut % (Auto) 66.9 Lymph % (Auto) 20.9 [place] % (Auto) 10.5 Eos % (Auto) 1.3 Baso % (Auto) 0.2 Lymph # (Auto) 1.3 [place] # (Auto) 0.6 Eos # (Auto) 0.1 Baso # (Auto) 0.0 Abs Immat Gran (auto) 0.01 Absolute Neuts (auto) 4.0 Absolute Nucleated RBC 0.000 Nucleated RBC % (auto) 0.0 Anion Gap 16 Estim Creat Clear Calc 93.4 Estimated GFR > 60 Random Glucose 126 H Calcium 8.4 D Magnesium Total Bilirubin Direct Bilirubin AST ALT Alkaline Phosphatase Total Protein Albumin COVID-19 ([facility]) COVID-19 Clin Com <Virginia Mesa PA-C - Last Filed: 12/15/22 07:47> Procedures Date of Service Date of Service: 12/15/22 <Donaldo Lofton MD - Last Filed: 12/15/22 09:13> Progress Note: A&P Assessment and plan (1) Small bowel obstruction: Status: Acute <Virginia Mesa PA-C - Last Filed: 12/15/22 07:47> Assessment and Plan: 67 year old male admitted with obstipation, abd distention found to have dilated SB loops on CT scan. No prior abd surgery. Unclear etiology of obstruction. He has passed some flatus overnight but still remains distended. SBFT this morning. Possible laparotomy depending on results. Patient comfortable with plan. <Virginia Mesa PA-C - Last Filed: 12/15/22 07:47> Time Spent With Patient Time: Total time managing care of this patient today ____ minutes. <Virginia Mesa PA-C - Last Filed: 12/15/22 07:47> Quality Stroke Does the patient have a stroke diagnosis?: No <Donaldo Lofton MD - Last Filed: 12/15/22 09:13> VTE Prior VTE?: No <Donaldo Lofton MD - Last Filed: 12/15/22 09:13> VTE Risk Level:: Medical - low <Virginia Mesa PA-C - Last Filed: 12/15/22 07:47> VTE Device Contraindication: N/A - Device Ordered <Virginia Mesa PA-C - Last Filed: 12/15/22 07:47> VTE Drug Contraindication: Treatment Not Indicated <Virginia Mesa PA-C - Last Filed: 12/15/22 07:47>
--- NOTE | 2022-12-15 12:11 | MHC.CM.PN ---
Male 67 DX PSBO he lives with . He is independent with all functional mobility. vaxxed x4. DP home self care will transport.
--- NOTE | 2022-12-15 12:58 | P.OP_ITS ---
Operative Note Operative Note Date of Service: 12/15/22 Narrative: Preoperative diagnosis: [] Postop diagnosis: [] Procedure [] Surgeon: [] Water Quality Technician: [] Type of Anesthesia: [] Indication for surgery: [] Findings: []
--- NOTE | 2022-12-15 14:11 | P.OP_ITS ---
Operative Note Operative Note Date of Service: 12/15/22 Narrative: Preoperative diagnosis: [] distal Small-bowel obstruction Postop diagnosis: [] same Procedure [] exploratory laparotomy, lysis of adhesion Surgeon: [] [facility] Associate: [] Bonita saha Type of Anesthesia: [] general Indication for surgery: [] patient presents with signs of systems consistent with a complete small bowel obstruction. He underwent an upper GI with small- bowel follow-through which at the 3-1/2 hours demonstrated a point of no progression of contrast and markedly dilated proximal bowel. Findings: [] intraoperative findings demonstrated a single adhesive band in the distal small bowel to the pelvic sidewall which was uneventfully taken down using digital dissection. Remaining small bowel was run in its entirety from ligament of Treitz to terminal ileum with no other gross pathology palpated or demonstrated. Point of adhesion was the transition zone with markedly proximal dilated small bowel and decompressed distal small bowel. No other gross intra- abdominal pathology was demonstrated. Patient brought to the operating room, placed on the operating table in supine position, and after an adequate level of general anesthesia was induced, the patient's abdomen which was moderately corpulent was prepped and draped in usual sterile fashion. using an infra- umbilical midline incision extended just to the left of the umbilicus, this carried down through skin, subcutaneous tissue using Bovie. Linea alba was opened and extended along the length of the excision using Bovie. Posterior fascia and peritoneum were entered sharply and extended proximally and distally using Bovie. packs and retractors were placed to enhance exposure. Findings were as noted above. Exploration of the abdomen into the pelvis demonstrated a transition point which small adhesion was taken down which served as the occlusion site. Remainder of the exploration was as noted in the findings above. The abdominal cavity was irrigated, secured hemostasis, and closed in mass closure fashion using 0 looped PDS. Interrupted inverted deep dermal 3-0 Vicryl sutures followed by running subcuticular 4-0 Vicryl sutures were placed. Steri-Strips and sterile dressings were applied. Patient tolerated the procedure well and emerged anesthesia stable condition. EBL minimum. Patient is undergoing a tap block per Anesthesia at completion of the abdominal procedure. Sponge, needle, and instrument counts were reported to be correct.
[2022-12-15] MEDS: HYDROmorphone HCl 0.5 MG/0.5 ML SYRINGE 0.25 MG IVPUSH (15:12)
--- NOTE | 2022-12-15 15:26 | HO.ANESPROP2 ---
HPI - Anesthesia Eval Consult details Narrative: 67-year-old male with dilated bowel loops on imaging and abnormal SBFT presenting for exploratory laparotomy for potential lysis of adhesions. Patient took barium contrast 3 hours ago. He had 1 episode of vomiting overnight. He denies any cardio pulmonary problems. He endorses tolerating more than 4 Mets of activity easily. He works at [employer] Active Problems Active Problems: All Active Problems (Updated 12/14/22 @ 15:36 by DIMA Martines) Small bowel obstruction (Acute) Obesity (BMI 30.0-34.9) (Acute) Tubular adenoma of colon (Acute) Benign prostatic hyperplasia (Acute) Past Medical History Medical History Benign prostatic hyperplasia Obesity (BMI 30.0-34.9) Tubular adenoma of colon Family History Family History Sister Rheumatoid arthritis Son Autism Family history of problems with anesthesia: No Surgical History Surgical History History of vasectomy History of Problems with Anesthesia: No Social History Social History Household Members: Spouse and Children Housing: Apartment Do you presently have visiting nurse or other home services: No Patient Tobacco Use Status: Former Tobacco user Tobacco use type: Cigar Smoked in Last 30 Days: No e-Cigarette/Vaping Use: Never Used Second Hand Smoke Exposure: No Use of substances other than those prescribed or required for medical reasons: Yes Substance Use Type: Marijuana Substance Use Frequency: Occasionally Last Used Substance: Days (ago) Currently Displaying Signs/Symptoms of Drug Intoxication Withdrawal: No Have you been hit, kicked, punched, or otherwise hurt by someone within the past year? If so, by whom?: No Do you feel safe in your current relationship?: Yes Is there a partner from a previous relationship who is making you feel unsafe now?: No Are you made to feel afraid or neglected: No Are you DNR?: No Advance Directives: No Advance Directives Information Provided: No Do you have thoughts of harming others: None Do you have a plan to hurt others: No Plan Recently lost weight without trying: No Eating poorly because of decreased appetite: No Nutrition Risks: No Nutritional Risk Poor oral hygiene: No service: No Current occupational status: employed Cognitive needs: No Hearing needs: No Vision needs: Yes Meds Allergies Allergy/AdvReac Type Severity Reaction Status Date / Time No Known Allergies Allergy Verified 12/14/22 12:53 Active Medications: Current Medications Acetaminophen (Acetaminophen 325 Mg Tablet) 650 mg PO Q6H PRN PRN Reason: Pain, Mild (Pain Scale 1-3) Hydromorphone HCl (Hydromorphone Hcl 0.5 Mg/0.5 Ml Syringe) 0.25 mg IVPUSH Q5M PRN; Protocol PRN Reason: Pain, Severe (Pain Scale 7-10) Last Admin: 12/15/22 15:12 Dose: 0.25 mg Sodium Chloride (Ns) 1,000 mls @ 100 mls/hr IVCONT .Q10H [facility] Last Admin: 12/15/22 14:35 Dose: Not Given Ketorolac Tromethamine (Ketorolac Tromethamine 30 Mg/Ml Vial) 15 mg IVPUSH Q6H PRN PRN Reason: Pain, Mild (Pain Scale 1-3) Stop: 12/19/22 16:47 Morphine Sulfate (Morphine Sulfate 4 Mg/Ml Cartridge) 4 mg IVPUSH Q4H PRN; Protocol PRN Reason: Pain, Severe (Pain Scale 7-10) Ondansetron HCl (Ondansetron Hcl 4 Mg/2 Ml Vial) 4 mg IVPUSH Q8H PRN PRN Reason: Nausea and Vomiting Last Admin: 12/14/22 18:23 Dose: 4 mg Ondansetron HCl (Ondansetron Hcl 4 Mg/2 Ml Vial) 4 mg IVPUSH ONCE PRN PRN Reason: Nausea and Vomiting Oxycodone HCl (Oxycodone Hcl Immed Release 5 Mg Tablet) 5 mg PO Q6H PRN PRN Reason: Pain, Moderate (Pain Scale 4-6 Pharmacy Consult (Consult Rx Perform Med Rec) 1 each MISCELLANE ONCE PRN PRN Reason: Consult order Sodium Chloride (0.9 % Sodium Chloride Flush 3 Ml [facility]) [facility] Last Admin: 12/15/22 07:16 Dose: Not Given Home Medications Medication Instructions Recorded Confirmed Last Taken Type tadalafil 20 mg tablet 5 mg PO DAILY 12/13/22 12/14/22 12/13/22 History Exam Exam Date and Time: December 15, 2022 1526 Height,Weight and Vital Signs: Height 5 ft 9 in Weight 201 lb 8.04 oz Last Vital Signs Temp 98.6 F 12/15/22 14:40 Pulse 79 12/15/22 15:10 Resp 17 12/15/22 15:12 BP 139/62 12/15/22 15:10 Pulse Ox 97 12/15/22 15:10 O2 Del Method Nasal Cannula with Capnography 12/15/22 15:10 O2 Flow Rate 2 12/15/22 15:10 Pertinent Lab Results Pertinent Lab Results: Laboratory Tests 12/14/22 12/14/22 12/14/22 13:31 13:31 19:29 WBC 6.6 RBC 4.82 Hgb 15.1 Hct 44.0 MCV 91.3 MCH 31.3 MCHC 34.3 RDW 13.4 Plt Count 256 MPV 8.8 L Immature Gran % (Auto) 0.3 Neut % (Auto) 69.1 Lymph % (Auto) 22.5 [place] % (Auto) 6.8 Eos % (Auto) 1.1 Baso % (Auto) 0.2 Lymph # (Auto) 1.5 [place] # (Auto) 0.5 Eos # (Auto) 0.1 Baso # (Auto) 0.0 Abs Immat Gran (auto) 0.02 Absolute Neuts (auto) 4.6 Absolute Nucleated RBC 0.000 Nucleated RBC % (auto) 0.0 Sodium 139 Potassium 4.6 Chloride 102 Carbon Dioxide 27 Anion Gap 15 BUN 13 Creatinine 1.08 Estim Creat Clear Calc 77.9 Estimated GFR > 60 Random Glucose 142 H Calcium 9.2 Magnesium 2.6 Total Bilirubin 0.9 Direct Bilirubin 0.2 AST 14 ALT 14 Alkaline Phosphatase 55 Total Protein 7.0 Albumin 4.2 COVID-19 (SUSAN) Negative COVID-19 Clin Com See Note Blood Type Antibody Screen 12/15/22 12/15/22 12/15/22 05:11 05:11 09:35 WBC 6.0 RBC 4.49 L Hgb 14.1 Hct 40.9 L MCV 91.1 MCH 31.4 MCHC 34.5 RDW 13.5 Plt Count 243 MPV 9.4 Immature Gran % (Auto) 0.2 Neut % (Auto) 66.9 Lymph % (Auto) 20.9 [place] % (Auto) 10.5 Eos % (Auto) 1.3 Baso % (Auto) 0.2 Lymph # (Auto) 1.3 [place] # (Auto) 0.6 Eos # (Auto) 0.1 Baso # (Auto) 0.0 Abs Immat Gran (auto) 0.01 Absolute Neuts (auto) 4.0 Absolute Nucleated RBC 0.000 Nucleated RBC % (auto) 0.0 Sodium 138 Potassium 4.2 Chloride 104 Carbon Dioxide 22 Anion Gap 16 BUN 16 Creatinine 0.88 Estim Creat Clear Calc 93.4 Estimated GFR > 60 Random Glucose 126 H Calcium 8.4 D Magnesium Total Bilirubin Direct Bilirubin AST ALT Alkaline Phosphatase Total Protein Albumin COVID-19 (SUSAN) COVID-19 Clin Com Blood Type B Positive Antibody Screen NEGATIVE Airway Mallampati Class: I TM Dist: >3cm Neck ROM: Full Partial: Upper Loose/Missing/Broken Teeth: Yes ( poor dentition, multiple missing teeth) Assessment and Plan Assessment Anesthesia Assessment: Anesthesia Plan Discussed and Chart Reviewed Final Anesthetic Review Family History of Problems with Anesthesia: No History of Problems with Anesthesia: No NPO: No ( recent contrast intake) ASA Class: II and Emergency Final Preanesthetic Review: No Changes in Pt Med Stat, Meds/Allgs Chart Reviewed, Consent Obtained/Reviewed and Anes Risks/Benef Reviewed Patient Risk: Intermediate Procedure Risk: Intermediate Anesthetic Plan Anesthetic Plan: GA and Regional Block (TAP block) Disposition: Standard PACU
[2022-12-15] MEDS: Acetaminophen 1,000 MG/100 ML PIGGYBACK 400 MG IV ×2 (15:33→21:18)
[2022-12-15] MEDS: 0.9 % Sodium Chloride Flush 3 ML SYRINGE IVFLUSH (21:19)
[2022-12-15] MEDS: ondansetron HCL 4 MG/2 ML VIAL IVPUSH (23:18)
[2022-12-16] MEDS: Throat Lozenge, Medicated LOZENGE 1 LOZENGE MUCOUS MEM ×5 (02:24→20:07)
[2022-12-16] MEDS: Ketorolac Tromethamine 30 MG/ML VIAL 15 MG IVPUSH ×2 (02:27→12:15)
[2022-12-16] MEDS: Acetaminophen 1,000 MG/100 ML PIGGYBACK 400 MG IV ×4 (03:20→21:00)
[2022-12-16 03:34] VITALS: BP 117/71; PULSE 84; RESP 18; TEMP 36.8; O2SAT 96
--- NOTE | 2022-12-16 04:53 | PC.NURSE ---
Patient's NG tube emptied for a total output of 800 mL, NG tube is intact.
[2022-12-16 06:00] LABS: MANUAL DIFF FLAG NO
[2022-12-16 06:08] LABS: Basophils Percent Auto 0.2 % (0-2); Eosinophils Percent Auto 0.4 % (0-4); Hematocrit 40.7 % (42.0-52.0); Imm Gran Abs Auto 0.01 X10*3/uL (0.00-0.03); Imm Gran Pct Auto 0.2 % (0.0-0.4); Lymphocytes Absolute Auto 1.2 X10*3/uL (1.2-4.9); Lymphocytes Percent Auto 22.5 % (20-40); Mean Corpuscular HGB Conc 34.4 g/dl (31.0-36.0); Mean Corpuscular Hemoglobin 31.5 pg (27.0-33.0); Mean Corpuscular Volume 91.7 fL (80.0-98.0); Mean Platelet Volume 9.4 fL (9.4-12.4); Monocytes Absolute Auto 0.5 X10*3/uL (0.1-1.2); Monocytes Percent Auto 10.2 % (2-11); Neutrophils Absolute Auto 3.5 x10*3/uL (2.0-8.3); Neutrophils Percent Auto 66.5 % (45-73); Platelet Count 253 X10*3/uL (160-400); Red Blood Count 4.44 X10*6/uL (4.60-5.80); Red Cell Distribution Width 13.4 % (11.0-16.0); White Blood Count 5.3 X10*3/uL (4.8-10.8)
[2022-12-16 06:27] LABS: Anion Gap 16 (12-20); Blood Urea Nitrogen 17 mg/dL (9-16); Calcium 8.2 mg/dL (8.4-10.2); Carbon Dioxide 22 mmol/L (22-29); Chloride 104 mmol/L (96-108); Creatinine Clr Calc Pharmacy 97.9; Estimated Glomerular Filt Rate > 60; Glucose Fasting 120 mg/dL (60-99); Potassium 4.2 mmol/L (3.3-5.1); Sodium 138 mmol/L (135-145)
[2022-12-16] MEDS: ondansetron HCL 4 MG/2 ML VIAL IVPUSH ×2 (06:47→18:07)
[2022-12-16] MEDS: 0.9 % Sodium Chloride 1,000 ML 100 ML IVCONT ×2 (07:16→17:35)
[2022-12-16 07:56] VITALS: BP 155/74; PULSE 71; RESP 18; TEMP 36.6; O2SAT 95
--- NOTE | 2022-12-16 08:39 | P.PNGS_ITS ---
Subjective Subjective Date of Service: 12/16/22 <Virginia Mesa PA-C - Last Filed: 12/16/22 08:44> 12/16/22 <Donaldo Lofton MD - Last Filed: 12/16/22 08:50> Interval history: C/o throat discomfort from NGT. Mild incisional pain. Passing some flatus. Has not been OOB. <Virginia Mesa PA-C - Last Filed: 12/16/22 08:44> Physical Exam Vital Signs: Vital Signs: Last Vital Signs Temp 97.8 F 12/16/22 07:56 Pulse 71 12/16/22 07:56 Resp 18 12/16/22 07:56 BP 155/74 H 12/16/22 07:56 Pulse Ox 95 12/16/22 07:56 O2 Del Method Room Air 12/16/22 07:56 O2 Flow Rate 2 12/15/22 19:49 BMI result Body Mass Index 29.7 <Virginia Mesa PA-C - Last Filed: 12/16/22 08:44> Const: General: comfortable, no acute distress and alert <Virginia Mesa PA-C - Last Filed: 12/16/22 08:44> Orientation/consciousness: patient oriented x3 <JOHANN Caba Last Filed: 12/16/22 08:44> HEENT: Other: NGT in place, contrast draining <Virginia Mesa PA-C - Last Filed: 12/16/22 08:44> Resp: Effort & Inspection: normal respiratory effort <Virginia Mesa PA-C - Last Filed: 12/16/22 08:44> GI: Inspection: Yes distended and Yes incision (dressing c/d/i) <JOHANN Caba Last Filed: 12/16/22 08:44> Palpation (GI): Soft to palpation, Tenderness to palpation present (GI) (mild, incisional), no guarding and not rigid <JOHANN Caba Last Filed: 12/16/22 08:44> Percussion: Yes tympanic to percussion <JOHANN Caba Last Filed: 12/16/22 08:44> Skin: General skin exam: no rashes or lesions noted <Virginia Mesa PA-C - Last Filed: 12/16/22 08:44> Neuro: General: patient oriented x3 <Virginia Mesa PA-C - Last Filed: 12/16/22 08:44> Extrem: General: Yes no clubbing, cyanosis or edema <Virginia Mesa PA-C - Last Filed: 12/16/22 08:44> Objective Data Active Medications Benzocaine (Throat Lozenge, Medicated Lozenge) 1 lozenge MUCOUS MEM Q2H PRN PRN Reason: Sore Throat Last Admin: 12/16/22 07:16 Dose: 1 lozenge Documented By: JESSE Hydromorphone HCl (Hydromorphone Hcl 0.5 Mg/0.5 Ml Syringe) 0.25 mg IVPUSH Q5M PRN; Protocol PRN Reason: Pain, Severe (Pain Scale 7-10) Last Admin: 12/15/22 15:12 Dose: 0.25 mg Documented By: BEN Sodium Chloride (Ns) 1,000 mls @ 100 mls/hr IVCONT .Q10H [facility] Last Admin: 12/16/22 07:16 Dose: 100 mls/hr Documented By: JESSE Acetaminophen (Ofirmev) 1,000 mg in 100 mls @ 400 mls/hr IV Q6H [facility] Last Infusion: 12/16/22 03:55 Dose: 0 mls/hr Documented By: OZORALB Ketorolac Tromethamine (Ketorolac Tromethamine 30 Mg/Ml Vial) 15 mg IVPUSH Q6H PRN PRN Reason: Pain, Mild (Pain Scale 1-3) Stop: 12/19/22 16:47 Last Admin: 12/16/22 02:27 Dose: 15 mg Documented By: FABI Morphine Sulfate (Morphine Sulfate 4 Mg/Ml Cartridge) 4 mg IVPUSH Q4H PRN; Protocol PRN Reason: Pain, Severe (Pain Scale 7-10) Ondansetron HCl (Ondansetron Hcl 4 Mg/2 Ml Vial) 4 mg IVPUSH Q8H PRN PRN Reason: Nausea and Vomiting Last Admin: 12/15/22 23:18 Dose: 4 mg Documented By: RAFA Oxycodone HCl (Oxycodone Hcl Immed Release 5 Mg Tablet) 5 mg PO Q6H PRN PRN Reason: Pain, Moderate (Pain Scale 4-6 Pharmacy Consult (Consult Rx Perform Med Rec) 1 each MISCELLANE ONCE PRN PRN Reason: Consult order Sodium Chloride (0.9 % Sodium Chloride Flush 3 Ml Syringe) 3 ml IVFLUSH QSHIFT [facility] Last Admin: 12/16/22 07:06 Dose: Not Given Documented By: JESSE Non-Admin Reason: IV Running <Virginia Mesa PA-C - Last Filed: 12/16/22 08:44> Labs CBC & Chem 7: 12/16/22 05:05 12/16/22 05:05 <Virginia Mesa PA-C - Last Filed: 12/16/22 08:44> Labs: Laboratory Results - last 24 hr 12/15/22 12/16/22 12/16/22 09:35 05:05 05:05 MCV 91.7 MCH 31.5 MCHC 34.4 RDW 13.4 Plt Count 253 MPV 9.4 Immature Gran % (Auto) 0.2 Neut % (Auto) 66.5 Lymph % (Auto) 22.5 [place] % (Auto) 10.2 Eos % (Auto) 0.4 Baso % (Auto) 0.2 Lymph # (Auto) 1.2 [place] # (Auto) 0.5 Eos # (Auto) 0.0 Baso # (Auto) 0.0 Abs Immat Gran (auto) 0.01 Absolute Neuts (auto) 3.5 Absolute Nucleated RBC 0.000 Nucleated RBC % (auto) 0.0 Anion Gap 16 Estim Creat Clear Calc 97.9 Estimated GFR > 60 Fasting Glucose 120 H Calcium 8.2 L Blood Type B Positive Antibody Screen NEGATIVE <Virginia Mesa PA-C - Last Filed: 12/16/22 08:44> Procedures Date of Service Date of Service: 12/16/22 <Donaldo Lofton MD - Last Filed: 12/16/22 08:50> Progress Note: A&P Assessment and plan (1) Small bowel obstruction: Status: Acute <JOHANN Caba Last Filed: 12/16/22 08:44> (2) S/P exploratory laparotomy: Status: Acute <Virginia Mesa PA-C - Last Filed: 12/16/22 08:44> Assessment and Plan: 67 year old male admitted with SBO. Had SBFT yesterday without passage of barium through the proximal jejunal loops, therefore taken to OR yesterday and underwent ex lap, SAI. Found to have single adhesive band in the distal small bowel to the pelvic sidewall. NGT inserted with immediate drainage of ~1500cc. He continues with high NGT output which appears to be mostly contrast. He is beginning to pass flatus however abd distention remains relatively unchanged. VSS. Cont NGT decompression, IVF for now. Encouraged OOB and ambulation of halls at least 4x today to promote GI function, IS use. Patient comfortable with plan. Await return of GI function. <Virginia Mesa PA-C Last Filed: 12/16/22 08:44> Time Spent With Patient Time: Total time managing care of this patient today ____ minutes. <Virginia Mesa PA-C - Last Filed: 12/16/22 08:44> Quality Stroke Does the patient have a stroke diagnosis?: No <Virginia Mesa PA-C Last Filed: 12/16/22 08:44> VTE Prior VTE?: No <Virginia Mesa PA-C Last Filed: 12/16/22 08:44> VTE Risk Level:: Medical - low <Virginia Mesa PA-C Last Filed: 12/16/22 08:44> VTE Device Contraindication: N/A - Device Ordered <Virginia Mesa PA-C Last Filed: 12/16/22 08:44> VTE Drug Contraindication: Treatment Not Indicated <Virginia Mesa PA-C Last Filed: 12/16/22 08:44>
--- NOTE | 2022-12-16 12:30 | HO.POSTANES ---
Post Anesthesia Evaluation Post Anesthesia Evaluation Vital Signs: Vital Signs Temp Pulse Resp BP Pulse Ox O2 Del Method 12/16/22 07:56 97.8 F 71 18 155/74 H 95 Room Air 12/16/22 03:34 98.3 F 84 18 117/71 96 Room Air Anesthesia: General Endotracheal-GETA Mental Status: Awake Pain Control: Satisfactory Nausea/Vomiting: Mild Hydration: Adequate Anesthesia-Related Issues: No Anes. Related Issues
--- NOTE | 2022-12-16 14:43 | MHC.CM.PN ---
no dc date at this time lives with not expected to need servcsie when dd
--- NOTE | 2022-12-16 14:45 | MHC.CM.PN ---
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
[2022-12-16 15:27] VITALS: BP 149/79; PULSE 81; RESP 18; TEMP 37.1; O2SAT 97
[2022-12-16 19:55] VITALS: BP 132/63; PULSE 75; RESP 18; TEMP 36.7; O2SAT 96
[2022-12-17] VITALS (7 sets, daily range): BP systolic 140–172; BP diastolic 72–84; PULSE 72–78; RESP 17–18; TEMP 36.6–37.1; O2SAT 94–99
[2022-12-17] MEDS: Ketorolac Tromethamine 30 MG/ML VIAL 15 MG IVPUSH ×2 (01:21→07:44)
[2022-12-17] MEDS: 0.9 % Sodium Chloride 1,000 ML 100 ML IVCONT ×3 (02:39→23:55)
[2022-12-17] MEDS: Throat Lozenge, Medicated LOZENGE 1 LOZENGE MUCOUS MEM (02:39)
[2022-12-17] MEDS: Acetaminophen 1,000 MG/100 ML PIGGYBACK 400 MG IV ×4 (03:33→21:09)
[2022-12-17] MEDS: ondansetron HCL 4 MG/2 ML VIAL IVPUSH ×3 (04:36→22:10)
[2022-12-17] MEDS: 0.9 % Sodium Chloride Flush 3 ML SYRINGE IVFLUSH ×2 (07:47→17:04)
--- NOTE | 2022-12-17 09:24 | P.PNGS_ITS ---
Subjective Subjective Date of Service: 12/17/22 Interval history: feels great minimal pain had good BMs this morning passing flatus well no N/V Physical Exam Vital Signs: Vital Signs: Last Vital Signs Temp 97.8 F 12/17/22 07:29 Pulse 72 12/17/22 07:29 Resp 18 12/17/22 07:29 BP 165/80 H 12/17/22 07:29 Pulse Ox 95 12/17/22 07:29 O2 Del Method Room Air 12/17/22 07:29 O2 Flow Rate 2 12/15/22 19:49 BMI result Body Mass Index 29.7 Const: General: comfortable and no acute distress Resp: Effort & Inspection: normal respiratory effort Cardio: Rate: regular rate GI: Other: incision clean and dry Palpation (GI): Soft to palpation, not firm, nontender and no guarding Objective Data Active Medications Baclofen (Baclofen 10 Mg Tablet) 5 mg PO Q6H PRN PRN Reason: hiccups Benzocaine (Throat Lozenge, Medicated Lozenge) 1 lozenge MUCOUS MEM Q2H PRN PRN Reason: Sore Throat Last Admin: 12/17/22 02:39 Dose: 1 lozenge Documented By: VINAYAK Hydromorphone HCl (Hydromorphone Hcl 0.5 Mg/0.5 Ml Syringe) 0.25 mg IVPUSH Q5M PRN; Protocol PRN Reason: Pain, Severe (Pain Scale 7-10) Last Admin: 12/15/22 15:12 Dose: 0.25 mg Documented By: BEN Sodium Chloride (Ns) 1,000 mls @ 100 mls/hr IVCONT .Q10H [facility] Last Admin: 12/17/22 02:39 Dose: 100 mls/hr Documented By: VINAYAK Acetaminophen (Ofirmev) 1,000 mg in 100 mls @ 400 mls/hr IV Q6H [facility] Last Infusion: 12/17/22 03:49 Dose: 0 mls/hr Documented By: VINAYAK Ketorolac Tromethamine (Ketorolac Tromethamine 30 Mg/Ml Vial) 15 mg IVPUSH Q6H PRN PRN Reason: Pain, Mild (Pain Scale 1-3) Stop: 12/19/22 16:47 Last Admin: 12/17/22 07:44 Dose: 15 mg Documented By: MIKY Morphine Sulfate (Morphine Sulfate 4 Mg/Ml Cartridge) 4 mg IVPUSH Q4H PRN; Protocol PRN Reason: Pain, Severe (Pain Scale 7-10) Ondansetron HCl (Ondansetron Hcl 4 Mg/2 Ml Vial) 4 mg IVPUSH Q8H PRN PRN Reason: Nausea and Vomiting Last Admin: 12/17/22 04:36 Dose: 4 mg Documented By: VINAYAK Oxycodone HCl (Oxycodone Hcl Immed Release 5 Mg Tablet) 5 mg PO Q6H PRN PRN Reason: Pain, Moderate (Pain Scale 4-6 Pharmacy Consult (Consult Rx Perform Med Rec) 1 each MISCELLANE ONCE PRN PRN Reason: Consult order Sodium Chloride (0.9 % Sodium Chloride Flush 3 Ml Syringe) 3 ml IVFLUSH [facility] Last Admin: 12/17/22 07:47 Dose: 3 ml Documented By: MIKY Labs 12/16/22 05:05 12/16/22 05:05 Procedures Date of Service Date of Service: 12/17/22 Progress Note: A&P Assessment and plan (1) S/P exploratory laparotomy: Status: Acute Assessment and Plan: doing well good GI function NGT output minimal - he takes ice chips too dc NGT clear liquids ambulate looks well Time Spent With Patient Time: Total time managing care of this patient today ____ minutes. Quality Stroke Does the patient have a stroke diagnosis?: No VTE Prior VTE?: No VTE Risk Level:: Medical - low VTE Device Contraindication: N/A - Device Ordered VTE Drug Contraindication: Treatment Not Indicated
[2022-12-18] MEDS: Acetaminophen 1,000 MG/100 ML PIGGYBACK 400 MG IV ×2 (03:12→10:03)
[2022-12-18 07:55] VITALS: BP 146/77; PULSE 67; RESP 18; TEMP 36.4; O2SAT 97
--- NOTE | 2022-12-18 08:32 | PM.PNGS ---
Subjective Subjective Date of Service: 12/18/22 Interval history: Says he feels well this morning tolerating clear liquids does have some hiccups describes multiple watery stools overnight passing flatus denies severe pain Physical Exam Vital Signs: Vital Signs: Last Vital Signs Temp 97.6 F 12/18/22 07:55 Pulse 67 12/18/22 07:55 Resp 18 12/18/22 07:55 BP 146/77 H 12/18/22 07:55 Pulse Ox 97 12/18/22 07:55 O2 Del Method Room Air 12/18/22 07:55 O2 Flow Rate 2 12/15/22 19:49 BMI result Body Mass Index 29.7 Const: General: comfortable and no acute distress Resp: Effort & Inspection: normal respiratory effort Cardio: Rate: regular rate GI: Other: incision clean and dry, mild tenderness along incision, appropriate to postop Palpation (GI): Soft to palpation, not firm, nontender and no guarding Objective Data Active Medications Baclofen (Baclofen 10 Mg Tablet) 5 mg PO Q6H PRN PRN Reason: hiccups Benzocaine (Throat Lozenge, Medicated Lozenge) 1 lozenge MUCOUS MEM Q2H PRN PRN Reason: Sore Throat Last Admin: 12/17/22 02:39 Dose: 1 lozenge Documented By: VINAYAK Hydromorphone HCl (Hydromorphone Hcl 0.5 Mg/0.5 Ml Syringe) 0.25 mg IVPUSH Q5M PRN; Protocol PRN Reason: Pain, Severe (Pain Scale 7-10) Last Admin: 12/15/22 15:12 Dose: 0.25 mg Documented By: BEN Sodium Chloride (Ns) 1,000 mls @ 100 mls/hr IVCONT .Q10H [facility] Last Admin: 12/17/22 23:55 Dose: 100 mls/hr Documented By: VINAYAK Acetaminophen (Ofirmev) 1,000 mg in 100 mls @ 400 mls/hr IV Q6H [facility] Last Infusion: 12/18/22 03:28 Dose: 0 mls/hr Documented By: VINAYAK Ketorolac Tromethamine (Ketorolac Tromethamine 30 Mg/Ml Vial) 15 mg IVPUSH Q6H PRN PRN Reason: Pain, Mild (Pain Scale 1-3) Stop: 12/19/22 16:47 Last Admin: 12/17/22 07:44 Dose: 15 mg Documented By: MIKY Morphine Sulfate (Morphine Sulfate 4 Mg/Ml Cartridge) 4 mg IVPUSH Q4H PRN; Protocol PRN Reason: Pain, Severe (Pain Scale 7-10) Ondansetron HCl (Ondansetron Hcl 4 Mg/2 Ml Vial) 4 mg IVPUSH Q8H PRN PRN Reason: Nausea and Vomiting Last Admin: 12/17/22 22:10 Dose: 4 mg Documented By: VINAYAK Oxycodone HCl (Oxycodone Hcl Immed Release 5 Mg Tablet) 5 mg PO Q6H PRN PRN Reason: Pain, Moderate (Pain Scale 4-6 Pharmacy Consult (Consult Rx Perform Med Rec) 1 each MISCELLANE ONCE PRN PRN Reason: Consult order Sodium Chloride (0.9 % Sodium Chloride Flush 3 Ml Syringe) 3 ml IVFLUSH [facility] Last Admin: 12/18/22 08:28 Dose: Not Given Documented By: MIKY Non-Admin Reason: IV Running Labs 12/16/22 05:05 12/16/22 05:05 Procedures Date of Service Date of Service: 12/18/22 Progress Note: A&P Assessment and plan (1) S/P exploratory laparotomy: Status: Acute Assessment and Plan: he continues to do well does have some diarrhea will check for C diff exam benign will re-evaluate later today and possibly advance diet clinically looks well has been ambulating Time Spent With Patient Time: Total time managing care of this patient today ____ minutes. Quality Stroke Does the patient have a stroke diagnosis?: No VTE Prior VTE?: No VTE Risk Level:: Medical - low VTE Device Contraindication: N/A - Device Ordered VTE Drug Contraindication: Treatment Not Indicated
[2022-12-18 14:00] VITALS: O2SAT 99
[2022-12-18 14:32] LABS: CDiff Gene PCR NEGATIVE (Negative)
[2022-12-18] MEDS: 0.9 % Sodium Chloride 1,000 ML 100 ML IVCONT (14:34)
[2022-12-18 15:52] VITALS: BP 142/64; PULSE 70; RESP 17; TEMP 36.4; O2SAT 97
[2022-12-18] MEDS: Throat Lozenge, Medicated LOZENGE 1 LOZENGE MUCOUS MEM ×2 (16:04→19:53)
[2022-12-18 19:31] VITALS: BP 132/69; PULSE 80; RESP 18; TEMP 36.1; O2SAT 97
[2022-12-18] MEDS: Ketorolac Tromethamine 30 MG/ML VIAL 15 MG IVPUSH (21:58)
[2022-12-19 02:55] VITALS: BP 140/74; PULSE 60; RESP 16; TEMP 36.5; O2SAT 96
[2022-12-19] MEDS: 0.9 % Sodium Chloride 1,000 ML 100 ML IVCONT (03:42)
[2022-12-19 07:15] VITALS: BP 144/74; PULSE 66; RESP 18; TEMP 36.5; O2SAT 98
--- NOTE | 2022-12-19 08:20 | PM.PNGS ---
Subjective Subjective Date of Service: 12/19/22 Interval history: Doing well this morning. NGT removed over weekend and diet advanced. Tolerated solid diet for dinner and eating marshallese toast this morning. Loose stools improved. Passing flatus. OOB and ambulating. Reports minimal abd pain. Wants to go home. Physical Exam Vital Signs: Vital Signs: Last Vital Signs Temp 97.7 F 12/19/22 07:15 Pulse 66 12/19/22 07:15 Resp 18 12/19/22 07:15 BP 144/74 H 12/19/22 07:15 Pulse Ox 98 12/19/22 07:15 O2 Del Method Room Air 12/19/22 07:15 O2 Flow Rate 2 12/15/22 19:49 BMI result Body Mass Index 29.7 Const: General: comfortable, no acute distress and alert Orientation/consciousness: patient oriented x3 Resp: Effort & Inspection: normal respiratory effort GI: Other: round Inspection: Yes distended (mildly) and Yes incision (clean) Palpation (GI): Soft to palpation, nontender, no guarding and not rigid Skin: General skin exam: no rashes or lesions noted Neuro: General: patient oriented x3 Extrem: General: Yes no clubbing, cyanosis or edema Objective Data Active Medications Baclofen (Baclofen 10 Mg Tablet) 5 mg PO Q6H PRN PRN Reason: hiccups Benzocaine (Throat Lozenge, Medicated Lozenge) 1 lozenge MUCOUS MEM Q2H PRN PRN Reason: Sore Throat Last Admin: 12/18/22 19:53 Dose: 1 lozenge Documented By: PARKER Hydromorphone HCl (Hydromorphone Hcl 0.5 Mg/0.5 Ml Syringe) 0.25 mg IVPUSH Q5M PRN; Protocol PRN Reason: Pain, Severe (Pain Scale 7-10) Last Admin: 12/15/22 15:12 Dose: 0.25 mg Documented By: BEN Sodium Chloride (Ns) 1,000 mls @ 60 mls/hr IVCONT .[id number] [facility] Last Admin: 12/19/22 03:42 Dose: 100 mls/hr Documented By: PARKER Ketorolac Tromethamine (Ketorolac Tromethamine 30 Mg/Ml Vial) 15 mg IVPUSH Q6H PRN PRN Reason: Pain, Mild (Pain Scale 1-3) Stop: 12/19/22 16:47 Last Admin: 12/18/22 21:58 Dose: 15 mg Documented By: PARKER Morphine Sulfate (Morphine Sulfate 4 Mg/Ml Cartridge) 4 mg IVPUSH Q4H PRN; Protocol PRN Reason: Pain, Severe (Pain Scale 7-10) Ondansetron HCl (Ondansetron Hcl 4 Mg/2 Ml Vial) 4 mg IVPUSH Q8H PRN PRN Reason: Nausea and Vomiting Last Admin: 12/17/22 22:10 Dose: 4 mg Documented By: VINAYAK Oxycodone HCl (Oxycodone Hcl Immed Release 5 Mg Tablet) 5 mg PO Q6H PRN PRN Reason: Pain, Moderate (Pain Scale 4-6 Pharmacy Consult (Consult Rx Perform Med Rec) 1 each MISCELLANE ONCE PRN PRN Reason: Consult order Sodium Chloride (0.9 % Sodium Chloride Flush 3 Ml [facility]ringe) [facility] Last Admin: 12/19/22 07:57 Dose: Not Given Documented By: ALFREDO Non-Admin Reason: IV Running Labs 12/16/22 05:05 12/16/22 05:05 Labs: Laboratory Results - last 24 hr 12/18/22 13:30 C. difficile Tox B Gene NEGATIVE Procedures Date of Service Date of Service: 12/19/22 Progress Note: A&P Assessment and plan (1) S/P exploratory laparotomy: Status: Acute (2) Small bowel obstruction: Status: Acute Plan 67 year old male who underwent ex lap, SAI for SBO. NGT removed over weekend and now tolerating solid diet with good GI function and good pain control. Does not want narcotics for home. VSS. Abd exam benign with clean incision. Stable for dc to home today. F/u in office in 1 week. Time Spent With Patient Time: Total time managing care of this patient today ____ minutes. Quality Stroke Does the patient have a stroke diagnosis?: No VTE Prior VTE?: No VTE Risk Level:: Medical - low VTE Device Contraindication: N/A - Device Ordered VTE Drug Contraindication: Treatment Not Indicated
[2022-12-19 08:40] LABS: Appearance Urine Clear; Color Urine Yellow; Glucose Urine UA Negative (Negative); Leukocyte Esterase Urine Negative (Negative); Nitrite Urine Negative (Negative); Specific Gravity - Urine 1.015 (1.005-1.025); Urine Blood Negative (Negative); Urine Ketones 80 mg/dL (Negative); Urine Protein Trace mg/dL (Neg-Trace)
--- NOTE | 2022-12-19 10:26 | MHC.CM.PN ---
pt dcd home no skilled services ordered by
--- NOTE | 2022-12-20 09:50 | P.DS_ITS ---
DS: Providers Provider Date of Service: 12/19/22 Date of admission: 12/14/22 16:45 Date of discharge: 12/19/22 Primary care physician: Lorraine Urbano MD Attending physician on admission: Donaldo Lofton DS: Diagnosis Discharge Diagnosis (1) S/P exploratory laparotomy: Status: Acute (2) Small bowel obstruction: Status: Acute DS: Summary Hospital Course Hospital Course: HPI AT ADMISSION: 67 year old male with PMH of BPH who presented to the ED with worsening abdominal distention. He reports this began two days ago. He denies significant associated pain but reports diffuse discomfort due to the bloating. He has not passed gas or had a normal BM since the bloating began on Monday. He reports he is not nauseous but made himself vomit twice to relieve some of the pressure. Patient denies any history of abdominal surgeries. HOSPITAL COURSE: Patient admitted to the surgical service for further treatment of the SBO, etiology unclear. He is actually well appearing and not currently vomiting and therefore NGT will be held for now unless he develops nausea or vomiting. Bowel rest, IVF, analgesics PRN were iniated and he was encouraged to ambulate with further plan dependent on clinical course. It was discussed he might require laparotomy if he worsens or has no further improvement. The patient remained distended. The patient underwent an upper GI with small- bowel follow-through the following day which at the 3-1/2 hours demonstrated a point of no progression of contrast and markedly dilated proximal bowel. Given the suggestion of complete obstruction, it was recommended to proceed with laparotomy, lysis of adhesions. He was added onto the OR schedule for that day. On 12/15/22, exploratory laparotomy, lysis of adhesion was performed by Dr. Lofton without complication. Intraoperative findings demonstrated a single adhesive band in the distal small bowel to the pelvic sidewall which was uneventfully taken down using digital dissection.?He tolerated the procedure well. NGT was inserted intraoperatively. He had an uncomplicated recovery course. On POD #1, he felt minimally improved and continued with high NGT output. His [place] was removed. He was ambulated. He began to pass flatus and had numerous BMs. The NGT output became scanty and was therefore removed on POD #2. He was started on clear liquids. Over the next couple of days, he did develop some loose stools and C diff was obtained which was negative. He was tolerating clear liquids and advanced to a solid diet. His loose stools improved. His pain remained minimal and felt comfortable without narcotics. On the day of discharge, he was tolerating a solid diet without nausea or vomiting. His abd pain was well controlled. He had good GI function. His abdomen was benign with clean incision. He was discharged to home on 12/19/22 in stable condition. He is to follow up in the office in [address] Lofton. Status at Discharge Functional status at discharge: independent ambulation Overall status at discharge: patient is progressing back to baseline Time Spent with Patient Time attestation: Total time managing care of this patient today ____ minutes. Discharge coordination time: Less than 30 minutes Quality: Safe Use of Opioids Does Pt have an Active Cancer Diagnosis on the Problem List?: No Quality: Stroke Does the patient have a stroke diagnosis?: No Physical Exam Vital Signs: Vital Signs: Last Vital Signs Temp 97.7 F 12/19/22 07:15 Pulse 66 12/19/22 07:15 Resp 18 12/19/22 07:15 BP 144/74 H 12/19/22 07:15 Pulse Ox 98 12/19/22 07:15 O2 Del Method Room Air 12/19/22 07:15 O2 Flow Rate 2 12/15/22 19:49 BMI result Body Mass Index 29.7 Const: General: comfortable, no acute distress and alert O rientation/consciousness: patient oriented x3 Resp: Effort & Inspection: normal respiratory effort GI: Inspection: Yes distended (mild) and Yes incision (clean) Palpation (GI): Soft to palpation, Tenderness to palpation present (GI) (very mild incisional), no guarding and not rigid Skin: General skin exam: no rashes or lesions noted Neuro: General: patient oriented x3 DS: Data Data Completed and Pending Completed studies during hospitalization [Text1]: Procedures Introduction of Anesthetic Agent into Peripheral Nerves and Plexi, Percutaneous Approach (12/14/22) Release Small Intestine, Open Approach (12/14/22) Discharge Plan Discharge Anticipated Discharge Date/Time: 12/19/22 08:17 Patient Disposition: Home, Self-Care Discharge Diagnosis: SBO Referrals: Lorraine Urbano MD [Primary Care Provider] - 1 Week Donaldo Lofton MD [Physician] - 1 Week Discharge Medications: New acetaminophen [Acetaminophen Extra Strength] 500 mg tablet 1,000 mg PO Q6H PRN (Reason: pain) Qty: 30 0RF ibuprofen 600 mg tablet 600 mg PO Q6H PRN (Reason: pain) Qty: 30 0RF Continued tadalafil 20 mg tablet 5 mg PO DAILY Discharge Orders: Discharge Order (Routine); Ordered 12/19/22 Ordered By: [place] Diet: Advance to usual diet Activity on Discharge: No heavy lifting Stand Alone Forms: Patient Portal Discharge page, Work/School Release Activity Restrictions/Additional Instructions: Apply an ice pack for short intervals (20 minutes on, followed by at least 20 minutes off). Do not apply heat. Do not use creams, lotions, or topical antibiotics. These can cause infection or allergic reaction. Ok to shower. You have steri strips (small white cloth strips) covering your incision- these will fall off ~1 week. Follow up in office with Dr. Lofton in 1 week. ([phone]) No heavy lifting (>10lbs) or strenuous activity! Call Your Doctor If: -Your temperature exceeds 101.5? F -You experience excessive pain or swelling -You have an unexpected reaction to medication -You have excessive bleeding -You experience continued vomiting/nausea -Your incision begins to separate -Your incision shows signs of infection such as increased redness, swelling, excessive pain, drainage (light blood or clear fluid is normal) or heat Care Plan Goals: Return to baseline health and resume normal activities following recovery period. Health Concerns: SBO Plan of Treatment: s/p ex valerie, SAI f/u in office Assessment: Doing well post op, GI function returned Discharge Date/Time: 12/19/22 12:04
== END 2022-12-19 12:04 | disposition home or self-care (01) | DRG 337 ==
LOC: HO.ED 15:41 → HO.EDOVER 16:57 → HO.S3 12-15 03:30
PROVIDERS: Physician Assistant; Physician Assistant Medical; Surgery; Admitting Provider Physician Assistant Surgical; Emergency Provider Emergency Medicine; PCP Internal Medicine; Visit Provider Physician Assistant Surgical
PROC: 0DN80ZZ Release Small Intestine, Open Approach (ICD-10-PCS; CPT 49000; principal; 2022-12-15 12:30)
DX: K56.52 Intestinal adhesions [bands] with complete obstruction (principal); N40.0 Benign prostatic hyperplasia without lower urinary tract symptoms; Z20.822 Contact with and (suspected) exposure to COVID-19; Z79.899 Other long term (current) drug therapy
CPT/HCPCS: 36415; 74176; 74250; 80048; 80076; 81003; 83735; 85025; 86850; 86900; 86901; 87493; 87635; 99285; C1758; J0131; J0330; J0690; J1170; J1885; J2405; J2795; J3010

== ENCOUNTER → 2022-12-28 13:43 | Outpatient (BNVA) | payer OTHER, SELFPAY | PROVIDERS: PCP Internal Medicine; Visit Provider Surgery | DX: Z13.89 Encounter for screening for other disorder (principal) ==

== ENCOUNTER → 2023-01-27 08:23 | Outpatient (BNVA) | payer OTHER, SELFPAY | PROVIDERS: PCP Internal Medicine; Visit Provider Nurse Practitioner Family ==

== ENCOUNTER 2023-08-18 10:47 | Day surgery (SDC) | payer OTHER, SELFPAY ==
--- NOTE | 2023-08-17 13:24 | HO.ANESPROP2 ---
Documented by User: Britni Gayle NP 08/17/23 13:24 HPI - Anesthesia Eval Consult details Narrative: 68yo M for Colonoscopy PMFSH Active Problems Active Problems: All Active Problems (Updated 12/21/22 @ 00:02 by Seun Ahumada) S/P exploratory laparotomy (Acute) Obesity (BMI 30.0-34.9) (Acute) Tubular adenoma of colon (Acute) Benign prostatic hyperplasia (Acute) Past Medical History Medical History Benign prostatic hyperplasia Obesity (BMI 30.0-34.9) Tubular adenoma of colon Family History Family History Sister Rheumatoid arthritis Son Autism Family history of problems with anesthesia: No Surgical History Surgical History History of vasectomy History of Problems with Anesthesia: No Social History Social History Household Members: Spouse and Children Housing: Apartment Do you presently have visiting nurse or other home services: No Patient Tobacco Use Status: Former Tobacco user Tobacco use type: Cigar e-Cigarette/Vaping Use: Never Used Second Hand Smoke Exposure: No Use of substances other than those prescribed or required for medical reasons: Yes Substance Use Type: Marijuana Substance Use Type Other:: Smokes Marijuana Substance Use Frequency: Monthly Are you DNR?: No Advance Directives: No Advance Directives Information Provided: Yes service: No Current occupational status: employed Cognitive needs: No Hearing needs: No Vision needs: Yes Meds Allergies Allergy/AdvReac Type Severity Reaction Status Date / Time No Known Allergies Allergy Verified 08/18/23 10:58 Home Medications Medication Instructions Recorded Confirmed Last Taken Type tadalafil 20 mg tablet 5 mg PO DAILY 12/13/22 12/14/22 12/13/22 History Assessment and Plan Assessment Anesthesia Assessment: Chart Reviewed Final Anesthetic Review Family History of Problems with Anesthesia: No History of Problems with Anesthesia: No Documented by User: Sydney Jalloh MD 08/18/23 12:30 PMFSH Past Medical History Medical History Benign prostatic hyperplasia Obesity (BMI 30.0-34.9) Tubular adenoma of colon Family History Family History Sister Rheumatoid arthritis Son Autism Surgical History Surgical History History of vasectomy Social History Social History Household Members: Spouse and Children Housing: Apartment Do you presently have visiting nurse or other home services: No Patient Tobacco Use Status: Former Tobacco user Tobacco use type: Cigar e-Cigarette/Vaping Use: Never Used Second Hand Smoke Exposure: No Use of substances other than those prescribed or required for medical reasons: Yes Substance Use Type: Marijuana Substance Use Type Other:: Smokes Marijuana Substance Use Frequency: Monthly Are you DNR?: No Advance Directives: No Advance Directives Information Provided: Yes service: No Current occupational status: employed Cognitive needs: No Hearing needs: No Vision needs: Yes Meds Allergies Allergy/AdvReac Type Severity Reaction Status Date / Time No Known Allergies Allergy Verified 08/18/23 10:58 Home Medications Medication Instructions Recorded Confirmed Last Taken Type tadalafil 20 mg tablet 5 mg PO DAILY 12/13/22 12/14/22 12/13/22 History Exam Airway Mallampati Class: II TM Dist: >3cm Neck ROM: Full Denture: Upper and Lower Heart: rrr Lungs: cta Assessment and Plan Assessment Anesthesia Assessment: Anesthesia Plan Discussed and Chart Reviewed Final Anesthetic Review NPO: Yes ASA Class: II Final Preanesthetic Review: No Changes in Pt Med Stat, Meds/Allgs Chart Reviewed and Consent Obtained/Reviewed Patient Risk: Intermediate Procedure Risk: Intermediate Anesthetic Plan Anesthetic Plan: MAC: Disposition: Standard PACU
[2023-08-18 10:52] VITALS: BMI 29.5
[2023-08-18 11:07] VITALS: BP 156/70; PULSE 66; RESP 16; TEMP 36.1; O2SAT 95
[2023-08-18] MEDS: Lactated Ringers 1,000 ML 100 ML IVCONT (11:11)
--- NOTE | 2023-08-18 12:30 | MHC.SHP ---
Pre-Procedural Eval Section A Date of Service: 08/18/23 The patient is an INPATIENT: No The History & Physical has been completed within 30 days and I have reviewed it.: No Section B Chief Complaint: Surveillance for colon polyps Relevant Family History (Specify if Yes): No Relevant Social History: Tobacco Use (Former smoker) Present Medications: see Short Stay Collaborative assessment Medical History: Significant History (Benign prostatic hyperplasia Obesity (BMI 30.0-34.9) Tubular adenoma of colon) History of Previous Operations: Relevant previous surgery/procedure and date(s) (History of colonoscopy, history of vasectomy) Allergies: Allergies Allergy/AdvReac Type Severity Reaction Status Date / Time No Known Allergies Allergy Verified 08/18/23 10:58 Review of Systems Sugical H&P ROS: Negative: Constitution, Cardiovascular, Respiratory and Gastrointestinal Exam Surgical H&P Exam: Normal: Heart, Normal: Lungs, Normal: Extremities and Normal: Abdomen Plan Diagnosis/Plan: Unchanged I have reviewed the history and physical and performed a pertinent physical examination on my patient. No changes have occurred unless specified. Time Spent With Patient Time: Total time managing care of this patient today ____ minutes.
--- NOTE | 2023-08-18 12:36 | W.PM.OPN ---
Operative Note Operative Note Date of Service: 08/18/23 Narrative: COLONOSCOPY TILL CECUM WITH SNARE POLYPECTOMY AND HEMOCLIP PLACEMENT Pre-op diagnosis: Surveillance for colon polyps Post-op diagnosis:? Colon polyps, diverticulosis, hemorrhoids Endoscopist:? Julian Andrea MD Anesthesia:?MAC Consent: Indications for the procedure and potential complications of bleeding, perforation, reaction to medications and missed diagnosis were discussed with the patient and informed consent was obtained. Instrument: Olympus CF H 190 L variable stiffness adult colonoscope Monitoring: Vital signs and clinical assessment, intermittent blood pressure monitoring, continuous EKG monitoring, Pulse oximetry and Carbon Dioxide monitoring were done throughout the procedure. Please see anesthesia flowsheet. Colon withdrawl time was 24 minutes. Procedure: The patient was placed in the left lateral decubitis position and pre-procedure medications were administered. After a digital rectal examination of the ano-rectum, the video colonoscope was inserted into the rectum and advanced through the colon to the cecum. The colonoscope was slowly withdrawn in a retrograde panoramic fashion and the colon mucosa was carefully examined including a retroflexed view of the rectum. Findings and interventions are described below. Procedure Difficulty: Without difficulty Findings: Terminal Ileum: Not evaluated Cecum: A 2 cms sessile polyp behind the ICV - removed with a hot snare. Polypectomy site was closed with 1 hemoclip. Ascending Colon: Scattered moderate diverticulosis throughout the entire colon Transverse Colon: Two 8 to 10 mm sessile polyps in the proximal TC - removed with a hot snare. A 12 to 18 mm sessile polyp versus submucosal lipoma at 100 cms - removed with a hot snare. Scattered moderate diverticulosis throughout the entire colon Descending Colon: Scattered moderate diverticulosis throughout the entire colon Sigmoid Colon: Moderate diverticulosis Rectum: Normal Ano-rectum: Moderate internal hemorrhoids Colon preparation: Good after some irrigation Impression and Post Procedure Diagnosis: Colonoscopy Findings: Four medium sized polyps removed Moderate diverticulosis seen in the entire colon Moderate hemorrhoids on retroflexed exam. Plan: Await pathology results Patient has an appointment on 09/01/23 in the GI Clinic with Angella Wolf FNP-BC. Repeat Colonoscopy interval based on path results - in 3-5 years if polyps are adenomatous and 10 years if polyps are hyperplastic. Above findings were reviewed with the patient and colon polyps and diverticulosis handouts were given in the discharge area.
[2023-08-18 13:17] VITALS: BP 109/67; PULSE 77; RESP 16; TEMP 36.4; O2SAT 95
[2023-08-18 13:32] VITALS: BP 111/69; PULSE 59; RESP 19; O2SAT 97
[2023-08-18 13:47] VITALS: BP 126/69; PULSE 62; RESP 14; TEMP 36.5; O2SAT 100
== END 2023-08-18 14:33 | disposition home or self-care (01) ==
PROVIDERS: PCP Internal Medicine; Visit Provider Internal Medicine Gastroenterology
PROC: 0DJD8ZZ Inspection of Lower Intestinal Tract, Via Natural or Artificial Opening Endoscopic (ICD-10-PCS; CPT 45378; principal; 2023-08-18 12:20)
DX: Z12.11 Encounter for screening for malignant neoplasm of colon (principal); Z86.010 Personal history of colon polyps; D12.0 Benign neoplasm of cecum; D12.3 Benign neoplasm of transverse colon; D17.5 Benign lipomatous neoplasm of intra-abdominal organs; K57.30 Diverticulosis of large intestine without perforation or abscess without bleeding; K64.8 Other hemorrhoids; N40.0 Benign prostatic hyperplasia without lower urinary tract symptoms; E66.9 Obesity, unspecified; Z68.28 Body mass index [BMI] 28.0-28.9, adult; Z79.899 Other long term (current) drug therapy; Z98.52 Vasectomy status; Z87.891 Personal history of nicotine dependence; F12.90 Cannabis use, unspecified, uncomplicated
CPT/HCPCS: 45385; 88305; J2704

== ENCOUNTER → 2023-08-18 10:47 | Outpatient (BNV) | payer OTHER, SELFPAY | PROVIDERS: PCP Internal Medicine; Visit Provider Internal Medicine Gastroenterology | DX: Z12.11 Encounter for screening for malignant neoplasm of colon (principal); Z86.010 Personal history of colon polyps; D12.0 Benign neoplasm of cecum; D12.3 Benign neoplasm of transverse colon | CPT/HCPCS: 45385 ==

== ENCOUNTER 2023-09-01 08:29 | Outpatient (AMB) | payer OTHER, SELFPAY ==
[2023-09-01 08:40] VITALS: BP 135/83; PULSE 72; BMI 29.0
--- NOTE | 2023-09-01 08:40 | A.OFFVIS_ITS ---
Intake Vital Signs 09/01/23 08:40 Height 5 ft 10 in Weight 201 lb 15.095 oz BMI 29.0 BP 135/83 Blood Pressure Location Rt brachial Position Sitting Pulse 72 Pulse Source Pulse Oximeter Intake Visit Reasons: S/p colon Emre Intake Note: Pt presents to the office today for a s/p colonoscopy. Pt states he is feeling well after his procedure. Pt denies any GI concerns at this time. Allergies No Known Allergies Allergy (Verified 09/01/23 08:42) HPI S/p colon Emre HPI Details LAST VISIT: Screen for colon cancer Patient denies any GI, cardiac or respiratory symptoms.? Denies any issues with anesthesia in the past.? Denies any history of sleep apnea.? As mentioned above patient recently underwent small bowel resection. Reports that he is moving his bowels well without any issues. No history infectious diseases in the past or present.? Not on any anticoagulation therapy.? Patient denies melena, hematochezia, unintentional weight loss or ribbon like stools.? Discussed at length the pre-procedure,? prep, diet & medications as well as what to expect prior, during and after the procedure.?? Stressed the importance of good bowel prep. ?Recommended the use of Vaseline or Calmoseptine OTC & baby wipes with bowel movements to promote comfort.? ?Patient verbalizes understanding and agrees to plan of care.? He was given the opportunity to ask questions and all questions answered.? We will see him after the procedure.? Plan Medications New bisacodyl (Dulcolax (bisacodyl)) take 2 tabs at noon the day before your colonoscopy 10 mg (2 x 5 mg) PO ONCE 2 tabs 0RF 1 day Z12.11 - Encounter for screening for malignant neoplasm of colon polyethylene glycol 3350 (Miralax) As directed by gastroenterology department at [facility] 238 grams PO ONCE 238 grams 0RF Z12.11 - Encounter for screening for malignant neoplasm of colon COLONOSCOPY: Findings: Terminal Ileum: Not evaluated Cecum: A 2 cms sessile polyp behind the ICV - removed with a hot snare. Polypectomy site was closed with 1 hemoclip. Ascending Colon: Scattered moderate diverticulosis throughout the entire colon Transverse Colon: Two 8 to 10 mm sessile polyps in the proximal TC - removed with a hot snare. A 12 to 18 mm sessile polyp versus submucosal lipoma at 100 cms - removed with a hot snare. Scattered moderate diverticulosis throughout the entire colon Descending Colon: Scattered moderate diverticulosis throughout the entire colon Sigmoid Colon: Moderate diverticulosis Rectum: Normal Ano-rectum: Moderate internal hemorrhoids Colon preparation: Good after some irrigation Impression and Post Procedure Diagnosis: Colonoscopy Findings: Four medium sized polyps removed Moderate diverticulosis seen in the entire colon Moderate hemorrhoids on retroflexed exam. Plan: Await pathology results Repeat Colonoscopy interval based on path results - in 3-5 years if polyps are adenomatous and 10 years if polyps are hyperplastic. PATHOLOGY RESULTS: Diagnosis A. Colon, cecum, polypectomy: Tubular adenoma, multiple fragments; negative for high-grade dysplasia. B. Colon, transverse, polypectomy: Tubular adenoma; negative for high-grade dysplasia. C. Colon, transverse, 100 cm, polypectomy: Submucosal lipoma TODAY'S VISIT: Patient is here today for follow-up and to discuss colonoscopy results. Patient denies any ill effects from the prep, anesthesia or procedure itself. Patient reports that he has been doing well since the procedure. Denies any melena, hematochezia, unintentional weight loss or ribbon like stools. Cecal polypectomy showed tubular adenoma without high-grade dysplasia or carcinoma. Three year recommendation was made for repeat colonoscopy. Patient denies any GI concerning symptoms today. Denies any dyspepsia, dysphagia or odynophagia. Denies any nausea or vomiting. Reports to have good appetite. Patient reports that he is moving his bowels without any issues. [facility] Medical History Obesity (BMI 30.0-34.9) Tubular adenoma of colon Benign prostatic hyperplasia Surgical History Hx of colonoscopy History of vasectomy Family History Sister Rheumatoid arthritis Son Autism Social History (Updated 09/01/23 @ 08:42 by Charlene Arias MA) Household Members: Spouse and Children Housing: Apartment Do you presently have visiting nurse or other home services: No Alcohol intake: current Alcohol intake frequency: a few times a week Alcohol type: wine Patient Tobacco Use Status: Former Tobacco user Tobacco use type: Cigar e-Cigarette/Vaping Use: Never Used Second Hand Smoke Exposure: No Substance Use Type: Marijuana service: No Current occupational status: employed Cognitive needs: No Hearing needs: No Vision needs: Yes Review of Systems Const Denies weight gain and Denies weight loss ENT Reports no additional complaints, Denies dysphagia and Denies odynophagia Card Reports no additional complaints Resp Reports no additional complaints GI Denies abdominal pain, Denies belching, Denies melena, Denies bloating, Denies change in bowel habits, Denies dysphagia, Denies excessive flatus, Denies dyspepsia, Denies heartburn, Denies diarrhea, Denies loose stools, Denies nausea, Denies odynophagia and Denies vomiting Reports no additional complaints Musc Reports no additional complaints Neuro Reports no additional complaints Psych Reports no additional complaints Endo Reports no additional complaints Physical Exam Vital Signs: Last Vital Signs Pulse 72 09/01/23 08:40 BP 135/83 09/01/23 08:40 BMI result Body Mass Index 29.0 Const General: healthy appearing, no acute distress and well developed Nutritional Appearance: well nourished Orientation/consciousness: patient oriented x3 HEENT Head: Yes normal to inspection, Yes normocephalic and Yes atraumatic Face and sinus: Yes normal facial exam Mouth: Normal oral and palatal mucosa present Throat: Yes posterior oropharynx normal, Yes tonsils normal and Yes uvula midline Eyes General: appearance normal, both eyes and all related structures Neck Neck: Yes normal visual inspection, Yes full ROM and Yes trachea midline Thyroid: Thyroid normal Resp Effort & Inspection: normal respiratory effort, able to speak in complete sentences, no tracheal deviation and symmetric chest movement Auscultation: clear to auscultation bilaterally Cardio Rate: regular rate GI Inspection: Yes normal to inspection, No distended and Yes obesity Palpation (GI): Soft to palpation, not firm, nontender and No hepatosplenomegaly present Auscultation: normal bowel sounds General: Yes no CVA tenderness Back/Spine/Pelvis Back: no CVA tenderness Skin General skin exam: elasticity normal, turgor normal and dry skin Neuro General: patient oriented x3 Psych Appearance: grossly normal Mental Status: mental status grossly normal Affect: normal affect Assessment & Plan Assessment & Plan (1) Tubular adenoma of colon: Code(s): D12.6 - Benign neoplasm of colon, unspecified (2) Hemorrhoids without complication: Code(s): K64.9 - Unspecified hemorrhoids (3) Status post colonoscopy: Code(s): Z98.890 - Other specified postprocedural states Plan Will start patient on Colace. Patient will be given script for Proctosol to use it on as needed basis. Discussed with patient the importance of increasing fluid intake and activity to promote better bowel motility. Patient will return on as needed basis. Colorectal screening in 3 years, sooner if clinically necessary. Patient is agreeable to this plan and verbalizes understanding of instructions. He was given the opportunity to ask questions and all questions answered. Thank you for allowing me to participate in his care Medications: New docusate sodium 100 mg PO BEDTIME 90 caps 3RF K59.00 - Constipation, unspecified hydrocortisone 2.5% (Proctosol HC) 1 appl [place] BID-QID PRN 30 grams 2RF hemorrhoids K64.9 - Unspecified hemorrhoids Coding Level of Care Code Est Pt Level 3 (38472) Diagnoses Tubular adenoma of colon D12.6 Hemorrhoids without complication K64.9 Status post colonoscopy Z98.890 Time Spent (min) 25 Comment 15 minutes spent with patient and additional 10 minutes spent reviewing his records
== END 2023-09-01 09:41 | disposition home or self-care (01) ==
PROVIDERS: PCP Internal Medicine; Visit Provider Nurse Practitioner Family
DX: D12.6 Benign neoplasm of colon, unspecified (principal); K64.9 Unspecified hemorrhoids; Z98.890 Other specified postprocedural states
CPT/HCPCS: 99213

== ENCOUNTER → 2023-09-01 08:29 | Outpatient (BNVA) | payer OTHER, SELFPAY | PROVIDERS: PCP Internal Medicine; Visit Provider Nurse Practitioner Family ==

== ENCOUNTER 2024-01-31 08:03 | Outpatient (AMB) | payer OTHER, SELFPAY ==
--- NOTE | 2024-01-31 08:09 | AM.OFFWIN_ITS ---
Intake Vital Signs 01/31/24 08:16 Height 5 ft 10 in BP 132/80 Blood Pressure Location Rt brachial Position Sitting Pulse 76 Pulse Source Pulse Oximeter Temp 99.3 F Temp Source Oral Pulse Oximetry (%) 98 Oxygen Delivery Method Room Air Intake Visit Reasons: Est/ sore throat/ upset stomach(lobby masked) Intake Note: pt is here for upset stomach, sore throat on and off for the last few weeks and cough causing sore throat Patient Tobacco Use Status: Former Tobacco user Allergies No Known Allergies Allergy (Verified 01/31/24 08:16) Do you need a note to return to daycare/school/sports/work: No HPI HPI Comments History of Present Illness Details He presents to office with cough, cold, sore throat and joint pain He states ongoing 3 weeks ago then got better but back again [address], pink eye symptoms wh ich resolved [place] better less than 1 week and then last Monday he said felt symptoms coming on + fever, joint pain, ST worse with swall owing Drinking cough medicine with some relief No SOB or CP no phlegm ST pain is 8/10 + sick contacts, son is sick as well No abdominal pain, nausea or vomiting PFSH Medical History Obesity (BMI 30.0-34.9) Tubular adenoma of colon Benign prostatic hyperplasia Surgical History Hx of colonoscopy History of vasectomy Family History Sister Rheumatoid arthritis Son Autism Social History (Updated 09/01/23 @ 08:42 by Charlene Arias CMA) Household Members: Spouse and Children Housing: Apartment Do you presently have visiting nurse or other home services: No Alcohol intake: current Alcohol intake frequency: a few times a week Alcohol type: wine Patient Tobacco Use Status: Former Tobacco user Tobacco use type: Cigar e-Cigarette/Vaping Use: Never Used Second Hand Smoke Exposure: No Substance Use Type: Marijuana service: No Current occupational status: employed Cognitive needs: No Hearing needs: No Vision needs: Yes Review of Systems Const Reports body aches, Reports chills, Reports fatigue, Reports fever(s) and Denies headache(s) Eyes Denies blurry vision ENT Denies dizziness, Denies otalgia, Denies headache(s), Denies sinus pain, Denies sinus pressure, Reports sore throat and Denies tongue swelling Card Denies chest pain and Denies dyspnea Resp Denies cough and Denies dyspnea GI Denies abdominal pain, Denies diarrhea, Denies nausea and Denies vomiting Musc Reports arthralgias Skin/Breast Denies rash and Reports other (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 No outside activity) Neuro Denies dizziness, Denies headache(s) and Denies focal weakness Endo Reports fatigue Aller/Immun Denies tongue swelling Physical Exam Vital Signs: Last Vital Signs Temp 99.3 F 01/31/24 08:16 Pulse 76 01/31/24 08:16 BP 132/80 01/31/24 08:16 Pulse Ox 98 01/31/24 08:16 Oxygen Delivery Method Room Air 01/31/24 08:16 General: Non-toxic, NAD. Speaking full sentences. Skin: Warm dry throughout Eye: EOMI HENT: Airway patent. Uvula midline. + pharyngeal erythema without exudates or edema. No [employer]ER [employer]PERATIONS [employer]OCIATE. No sublingual edema or mass No tenderness to papation of lingula or sublingual space Bilateral canals clear. TM non-erythematous, non-bulging. No TM perforation or hemotympanum noted. Lymph: + tender tonsilar lymphadenopathy. No submandibular induration or mass palpated. Respiratory: CTA bilaterally. No wheezes, rales or rhonchi Cardiac: RRR. No murmur MSK: Full ROM extremities. Neurology: A/O. No aphasia or facial droop. Gait without abnormality Psych: Good mood and affect Assessment & Plan Assessment & Plan (1) Fever: Code(s): R50.9 - Fever, unspecified Qualifiers: Fever type: unspecified Qualified Code(s): R50.9 - Fever, unspecified Plan: Discussed fever control and fluids (2) Pharyngitis: Code(s): J02.9 - Acute pharyngitis, unspecified Qualifiers: Pharyngitis/tonsillitis etiology: unspecified etiology Qualified Code(s): J02.9 - Acute pharyngitis, unspecified Plan: Patient seen and evaluated. Non-toxic, speaking ful sentences and handling secretions Tongue depressor used for oral examination without abscess Airway patent and strep negative. Centor is 1 Lungs CTA bur concern ongoing fever/symptoms almost for 3 weeks Discussed coud be viral etiology which would need time, fever control, fluids and rest Will cover with augmentin for concern ongoing fever and degree of ST. Discussed ER protocol and when to call Patient gave verbal understanding and had no additional questions or concerns at time of discharge All questions answered Medications: New amoxicillin-pot clavulanate 875-125 mg 1 tab PO BID 14 tabs 0RF Coding Level of Care Code Est Pt Level 3 (64704) Diagnoses Fever, unspecified fever cause R50.9 Fever type: unspecified Pharyngitis, unspecified etiology J02.9 Pharyngitis/tonsillitis etiology: unspecified etiology
[2024-01-31 08:16] VITALS: BP 132/80; PULSE 76; TEMP 37.4; O2SAT 98
== END 2024-01-31 08:59 | disposition home or self-care (01) ==
PROVIDERS: PCP Internal Medicine; Visit Provider Physician Assistant
DX: R50.9 Fever, unspecified (principal); J02.9 Acute pharyngitis, unspecified; Z13.9 Encounter for screening, unspecified
CPT/HCPCS: 87880; 99213

== ENCOUNTER 2024-04-22 12:33 | Outpatient (AMB) | payer OTHER, SELFPAY ==
--- NOTE | 2024-04-22 12:47 | MHC.PC.OV ---
Vital Signs 04/22/24 12:48 04/22/24 13:30 Height 5 ft 10 in Weight 199 lb BMI 28.6 BP 160/100 H 140/80 H Blood Pressure Location Lt brachial Lt brachial Position Sitting Sitting Pulse 76 Pulse Source Pulse Oximeter Pulse Oximetry (%) 97 Oxygen Delivery Method Room Air Intake Visit Reasons: Annual PE Intake Note: Patient here for physical exam. Colon: 2022 due in 3yrs Allergies No Known Allergies Allergy (Verified 04/22/24 13:11) Medication List - Last Reconciled 04/22/24 by Lorraine Urbano MD tadalafil 5 mg PO DAILY Tobacco use date assessed: 04/22/24 Fall risk assessment: No Falls in past year Last assessed Fall Risk: 04/22/24 Dental Screening Dental Screen Date: 04/22/24 Did you have a dental visit in the last 12 months?: Yes Did you have a dental problem in the last 6 months where you did not have access to dental care?: No Was dental information given to patient?: Patient has dentist HPI Annual PE HPI Details 68-year-old male here today for physical exam. He has history of impaired fasting glucose, hypertriglyceridemia, and benign prostatic hyperplasia. Has been feeling well, with no complaints at present time. Up-to-date with his screening colonoscopy done in [address] Andrea with removal of a tubular adenoma polyp, repeat due again in 2027.. [facility] Medical History (Updated 04/22/24 @ 13:34 by Lorraine Urbano MD) Impaired fasting glucose Hypertriglyceridemia Obesity (BMI 30.0-34.9) Tubular adenoma of colon Benign prostatic hyperplasia Surgical History Hx of colonoscopy History of vasectomy Family History Sister Rheumatoid arthritis Son Autism Social History Household Members: Spouse and Children Housing: Apartment Do you presently have visiting nurse or other home services: No Alcohol intake: current Alcohol intake frequency: a few times a week Alcohol type: wine Patient Tobacco Use Status: Former Tobacco user Tobacco use type: Cigar e-Cigarette/Vaping Use: Never Used Second Hand Smoke Exposure: No Substance Use Type: Marijuana service: No Current occupational status: employed Cognitive needs: No Hearing needs: No Vision needs: Yes Questionnaire PHQ-9 Over the last 2 weeks, how often have you been bothered by any of the following problems? 1. Little interest or pleasure in doing things: not at all 2. Feeling down, depressed, or hopeless: not at all 3. Trouble falling or staying asleep, or sleeping too much: not at all 4. Feeling tired or having little energy: not at all 5. Poor appetite or overeating: not at all 6. Feeling bad about yourself - or that you are a failure or have let yourself or your family down: not at all 7. Trouble concentrating on things, such as reading the newspaper or watching television: not at all 8. Moving or speaking so slowly that other people could have noticed. Or the opposite - being so fidgety or restless that you have been moving around a lot more than usual: not at all 9. Thoughts that you would be better off or of hurting yourself in some way: not at all Total score: 0 Depression Screening Interpretation: Negative Depression Screening Done: Yes 62390 - PHQ-9 Billing: Yes Source: Developed by Drs. Chilango Winchester, Lolly Soares, Geoffrey Estrada and colleagues, with an educational christiana from [employer]. Thrive Questionnaire Date Thrive assessed: 04/22/24 I am a: Patient What is your living situation today?: I have a steady place to live Within the past 12 months, did the food you bought not last and you didn't have the money to get more?: Never true Within the past 12 months, did you worry whether your food would run out before you got money to buy more?: Never true Do you have trouble paying for medicines?: No Do you have trouble getting transportation to medical appointments?: No Do you have trouble paying your heating and electricity bill?: No Do you have trouble taking care of your child, family member or friend?: No Do you have trouble with day-to-day activities such as bathing, preparing meals, shopping, managing finances, etc.?: No Are you currently unemployed and looking for a job?: No Are you interested in more education?: No Please select the resources that you would like help with: Housing/Prison Currently or been in a relationship where the following occur: No concerns reported THRIVE Score: 0 AUDIT C Alcohol Use Questionnaire (AUDIT-C) 1. How often do you have a drink containing alcohol?: 2-3 times a week 2. How many drinks containing alcohol do you have on a typical day when you are drinking?: 3 or 4 3. How often do you have six or more drinks on one occasion?: Less than monthly Total Score: 5 CARLITO-7 AMB Questionnaire CARLITO-7 Date CARLITO - 7 assessed: 04/22/24 Feeling nervous, anxious, or on edge: 0 = Not at all Not being able to stop or control worryin = Not at all Worrying too much about different things: 0 = Not at all Trouble relaxin = Not at all Being so restless that it is hard to sit still: 0 = Not at all Becoming easily annoyed or irritable: 0 = Not at all Feeling afraid as if something awful might happen: 0 = Not at all Total CARLITO-7 score (0-4 normal; 5-9 mild; 10-14 moderate; 15-21 severe): 0 Source: Developed by Drs. Chilango Winchester, Lolly Soares, Geoffrey Estrada and colleagues, with an educational christiana from [employer]. CARLITO-7 Assessment Billing CARLITO-7 Assessment Tool: CARLITO-7 Assessment 98182 Review of Systems Const Denies chills, Denies fatigue, Denies fever(s), Denies headache(s), Denies lethargy and Denies weakness Eyes Details: wears cheaters ENT Denies headache(s) Card Reports no additional complaints Resp Reports no additional complaints GI Denies melena, Denies bloating, Denies hematochezia, Denies change in bowel habits and Denies nausea Denies hematuria, Denies dysuria, Denies penile discharge, Denies scrotal swelling, Denies testicular mass, Denies testicular pain and Denies urinary frequency Musc Reports as per HPI Skin/Breast Denies lesions and Denies rash Neuro Denies headache(s) and Denies weakness Psych Reports no additional complaints Endo Denies fatigue Ferny/Lymph Reports no additional complaints Aller/Immun Reports no additional complaints Physical exam (Primary Care) Vital Signs: Last Vital Signs Pulse 76 04/22/24 12:48 BP 140/80 H 04/22/24 13:30 Pulse Ox 97 04/22/24 12:48 Oxygen Delivery Method Room Air 04/22/24 12:48 BMI result Body Mass Index 28.6 BMI Assessment/Plan discussion: High BMI High, discussed plan: lifestyle, weight reduction, dietary and physical activity Tobacco/Smoking Status: Tobacco use Status Tobacco use date assessed 04/22/24 04/22/24 12:52 Patient Tobacco Use Status Former Tobacco user 04/22/24 12:52 Tobacco use type Cigar 04/22/24 12:52 e-Cigarette/Vaping Use Never Used 04/22/24 12:52 Are you ready to quit: No PHQ-9: PHQ-9 Score PHQ-9: Total score 0 04/22/24 13:37 Depression Screening Interpretation: Negative Thrive Assessment: Date of Thrive Assessment Date Thrive assessed 04/22/24 04/22/24 12:52 Currently or been in a relationship where the following occur: No concerns reported Const General: cooperative, comfortable, no acute distress, alert and awake Nutritional Appearance: obese Orientation/consciousness: patient oriented x3 Limitations: no limitations HENMT Head: Yes normocephalic and Yes atraumatic Ears: hearing grossly normal bilaterally and external ears normal General nose exam: Normal external nose present and No nasal discharge present Face and sinus: Yes face symmetric Mouth: Normal oral and palatal mucosa present, tongue normal, oropharynx normal and moist mucous membranes Eyes General: appearance normal, both eyes and all related structures Neck Neck: Yes full ROM, Yes no lymphadenopathy and Yes supple Thyroid: Thyroid normal Chest Chest palpation & inspection: normal inspection of the chest Resp Effort & Inspection: normal respiratory effort and able to speak in complete sentences Auscultation: clear to auscultation bilaterally Cardio Palpation: normal PMI Rate: regular rate Rhythm: regular rhythm Heart sounds: S1 normal heart sound present and S2 normal heart sound present GI Other: Normal bowel sounds, soft, slight tenderness on palpation over bilateral lower quadrants, no mass palpated. Inspection: Yes obesity Palpation (GI): Soft to palpation, no guarding, no hernias and no masses Auscultation: normal bowel sounds General: Yes no CVA tenderness Male General Exam: Yes normal external exam Penis: normal penis Back/Spine/Pelvis Back: no CVA tenderness and No back tenderness Skin General skin exam: no rashes or lesions noted Neuro General: patient oriented x3, gait normal, tone normal, moves all extremities, Normal light touch and pain sensation, no focal motor deficits and CN's II-XI intact bilaterally Gait exam (Neuro): Normal gait present Motor exam (neuro): 5/5 motor strength present throughout Extrem General: Yes full ROM, Yes no joint enlargement, Yes no clubbing, cyanosis or edema, Yes no calf tenderness and Yes normal gait Psych Appearance: grossly normal and well kempt Mental Status: mental status grossly normal Speech and movement: Normal speech and movement present Affect: normal affect Attitude: cooperative Thought process: Normal thought process present Thought content: Normal thought content present Assessment and Plan Assessment & Plan (1) Annual visit for general adult medical examination with abnormal findings: Code(s): Z00.01 - Encounter for general adult medical examination with abnormal findings Plan: Will check appropriate labs. Recommended dental visit every 6 months and regular eye exams, at least every 2 years. Take adequate calcium in diet and vitamin-D 3 at 2000 IU per cap once a day, in addition to weight-bearing exercises to help maintain good muscle tone and weight control. Instructed to do self testicular exam check for any mass, up-to-date with his screening colonoscopy. Up-to-date with his COVID vaccine, but has not yet had a booster, reminded to get his yearly flu shot, up-to-date with pneumonia vaccination and Tdap, advised to get vaccinated again Shingles (2) Tubular adenoma of colon: Code(s): D12.6 - Benign neoplasm of colon, unspecified Plan: Repeat colonoscopy due again in [address] Andrea (3) Obesity (BMI 30.0-34.9): Code(s): E66.9 - Obesity, unspecified Plan: Discussed need to increase activity and weight reduction. Recommended focusing on improving health instead of dieting. Mediterranean diet is a healthy diet that helps, limit food high in fat, sugar, and calories. Eat slowly, pay attention to portion sizes, plan your meals ahead of time, start regular physical activity, at least 150 minutes of moderate intensity exercise, or 90 minutes per week of vigorous exercise. Keeping a food diary, tracking what you eat and your physical activity can help assess what improvements you can make. There are many health problems associated with being overweight/obese, so it is important to improve your diet and exercise. There are medications and surgical options available, but Lifestyle changes are the 1st step. (4) Hypertriglyceridemia: Code(s): E78.1 - Pure hyperglyceridemia Plan: Fasting lipid panel ordered, reinforced importance of adherence to low-cholesterol diet and regular exercise, at least 30 minutes 3 to 4 times a week. Advised patient to make healthy food choices, eat more fruits, vegetables, whole grains, wild caught fish and low-fat dairy. Limit amount of meat and fried or fatty food products, as well as processed foods and fast foods. (5) Impaired fasting glucose: Code(s): R73.01 - Impaired fasting glucose Plan: Your previous fasting blood sugars were elevated above 100 mg/dL. Impaired glucose metabolism increases the risk for developing diabetes mellitus type 2, as well as heart attack and stroke later on. Lifestyle changes that promotes weight loss, healthy eating habits, and regular exercise are important, and can prevent the progression to diabetes (6) Elevated blood pressure reading: Code(s): R03.0 - Elevated blood-pressure reading, without diagnosis of hypertension Plan: Stressed importance of following a low-salt diet, getting regular cardio exercise at least 15 minutes . Will have him see nurse navigator in a week to re-check blood pressure Orders: Orders Complete Blood Count Auto Diff 04/22/24 D12.6 - Benign neoplasm of colon, unspecified, E66.9 - Obesity, unspecified, E78.1 - Pure hyperglyceridemia, R73.01 - Impaired fasting glucose, Z00.01 - Encounter for general adult medical examination with abnormal findings Alanine Aminotransferase 04/22/24 D12.6 - Benign neoplasm of colon, unspecified, E66.9 - Obesity, unspecified, E78.1 - Pure hyperglyceridemia, R73.01 - Impaired fasting glucose, Z00.01 - Encounter for general adult medical examination with abnormal findings Lipid Panel 04/22/24 D12.6 - Benign neoplasm of colon, unspecified, E66.9 - Obesity, unspecified, E78.1 - Pure hyperglyceridemia, R73.01 - Impaired fasting glucose, Z00.01 - Encounter for general adult medical examination with abnormal findings Basic Metabolic Panel Fasting 04/22/24 D12.6 - Benign neoplasm of colon, unspecified, E66.9 - Obesity, unspecified, E78.1 - Pure hyperglyceridemia, R73.01 - Impaired fasting glucose, Z00.01 - Encounter for general adult medical examination with abnormal findings Aspartate Amino Transferase 04/22/ D12.6 - Benign neoplasm of colon, unspecified, E66.9 - Obesity, unspecified, E78.1 - Pure hyperglyceridemia, R73.01 - Impaired fasting glucose, Z00.01 - Encounter for general adult medical examination with abnormal findings Hemoglobin A1c 08 D12.6 - Benign neoplasm of colon, unspecified, E66.9 - Obesity, unspecified, E78.1 - Pure hyperglyceridemia, R73.01 - Impaired fasting glucose, Z00.01 - Encounter for general adult medical examination with abnormal findings Coding Level of Care Code Est Pt Prev Care >65y(77672) Diagnoses Annual visit for general adult medical examination with abnormal findings Z00.01 Tubular adenoma of colon D12.6 Obesity (BMI 30.0-34.9) E66.9 Hypertriglyceridemia E78.1 Impaired fasting glucose R73.01 Elevated blood pressure reading R03.0 Additional Codes CARLITO-7 Assessment Billing - CARLITO-7 Assessment Tool: CARLITO-7 Assessment 75355 ([id number])
[2024-04-22 12:48] VITALS: BP 160/100; PULSE 76; O2SAT 97; BMI 28.6
[2024-04-22 13:30] VITALS: BP 140/80
== END 2024-04-22 13:51 | disposition home or self-care (01) ==
PROVIDERS: PCP Internal Medicine; Visit Provider Internal Medicine
DX: Z00.00 Encounter for general adult medical examination without abnormal findings (principal); D12.6 Benign neoplasm of colon, unspecified; E66.9 Obesity, unspecified; Z68.28 Body mass index [BMI] 28.0-28.9, adult; E78.1 Pure hyperglyceridemia; R73.01 Impaired fasting glucose; R03.0 Elevated blood-pressure reading, without diagnosis of hypertension
CPT/HCPCS: 99397

== ENCOUNTER 2024-05-22 06:07 | Outpatient (REF) | payer OTHER, SELFPAY ==
[2024-05-22 09:59] LABS: MANUAL DIFF FLAG NO
[2024-05-22 10:15] LABS: Basophils Percent Auto 0.7 % (0-2); Eosinophils Absolute Auto 0.2 X10*3/uL (0.0-0.4); Eosinophils Percent Auto 5.2 % (0-4); Estimated Average Glucose 128 mg/dL; Hematocrit 41.3 % (42.0-52.0); Hemoglobin 14.1 g/dl (14.0-18.0); Hemoglobin A1c % 6.1 % (<6.0); Lymphocytes Absolute Auto 2.1 X10*3/uL (1.2-4.9); Mean Corpuscular HGB Conc 34.1 g/dl (31.0-36.0); Mean Corpuscular Hemoglobin 32.1 pg (27.0-33.0); Mean Corpuscular Volume 94.1 fL (80.0-98.0); Mean Platelet Volume 9.4 fL (9.4-12.4); Monocytes Absolute Auto 0.3 X10*3/uL (0.1-1.2); Monocytes Percent Auto 6.8 % (2-11); Neutrophils Absolute Auto 1.6 x10*3/uL (2.0-8.3); Neutrophils Percent Auto 37.3 % (45-73); Platelet Count 255 X10*3/uL (160-400); Red Blood Count 4.39 X10*6/uL (4.60-5.80); Red Cell Distribution Width 13.6 % (11.0-16.0); White Blood Count 4.2 X10*3/uL (4.8-10.8)
[2024-05-22 10:26] LABS: Alanine Aminotransferase 16 U/L (0-40); Anion Gap 15 (12-20); Aspartate Amino Transferase 21 U/L (5-37); Blood Urea Nitrogen 13 mg/dL (9-16); Calcium 9.5 mg/dL (8.4-10.2); Carbon Dioxide 26 mmol/L (22-29); Chloride 105 mmol/L (96-108); Cholesterol 211 mg/dL (<200); Estimated Glomerular Filt Rate > 60; Glucose Fasting 155 mg/dL (60-99); HDL Cholesterol 41 mg/dL (>40); LDL Cholesterol Calculated 97 mg/dL (<100); Potassium 4.6 mmol/L (3.3-5.1); Sodium 141 mmol/L (135-145); Triglycerides 367 mg/dL (<150)
== END 2024-05-22 06:08 | disposition home or self-care (01) ==
LOC: HO.HMGCLDS 06:07
PROVIDERS: PCP Internal Medicine; Visit Provider Internal Medicine
DX: Z00.01 Encounter for general adult medical examination with abnormal findings (principal); E66.9 Obesity, unspecified; D12.6 Benign neoplasm of colon, unspecified; E78.1 Pure hyperglyceridemia; R73.01 Impaired fasting glucose
CPT/HCPCS: 36415; 80048; 80061; 83036; 84450; 84460; 85025

== ENCOUNTER 2025-06-07 07:48 | Outpatient (REF) | payer OTHER, SELFPAY ==
[2025-06-07 11:10] LABS: MANUAL DIFF FLAG NO
[2025-06-07 11:16] LABS: Hematocrit 40.8 % (42.0-52.0); Hemoglobin 13.9 g/dl (14.0-18.0); Imm Gran Abs Auto 0.01 X10*3/uL (0.00-0.03); Imm Gran Pct Auto 0.2 % (0.0-0.4); Lymphocytes Absolute Auto 2.2 X10*3/uL (1.2-4.9); Mean Corpuscular HGB Conc 34.1 g/dl (31.0-36.0); Mean Corpuscular Hemoglobin 32.0 pg (27.0-33.0); Mean Corpuscular Volume 93.8 fL (80.0-98.0); NRBC Abs Auto 0.000 X10*3/uL (0.0-0.012); NRBC Pct Auto 0.0 /100WBC (0.0-0.2); Platelet Count 250 X10*3/uL (160-400); Red Blood Count 4.35 X10*6/uL (4.60-5.80); White Blood Count 4.6 X10*3/uL (4.8-10.8)
[2025-06-07 11:27] LABS: Hemoglobin A1C 177.4220 umol/L; Total Hemoglobin (HGBA1C) 3642.1460 umol/L
[2025-06-07 11:37] LABS: Alanine Aminotransferase 14 U/L (0-40); Anion Gap 10 (12-20); Aspartate Amino Transferase 26 U/L (5-37); Blood Urea Nitrogen 13 mg/dL (9-16); Calcium 9.2 mg/dL (8.4-10.2); Carbon Dioxide 28 mmol/L (22-29); Chloride 105 mmol/L (96-108); Cholesterol 212 mg/dL (<200); Estimated Glomerular Filt Rate > 60; HDL Cholesterol 43 mg/dL (>40); Potassium 4.2 mmol/L (3.3-5.1); Sodium 139 mmol/L (135-145); Triglycerides 249 mg/dL (<150)
== END 2025-06-07 07:49 | disposition home or self-care (01) ==
LOC: HO.HMGCLDS 07:48
PROVIDERS: PCP Internal Medicine; Visit Provider Internal Medicine
DX: E78.1 Pure hyperglyceridemia (principal); E66.811 Obesity, class 1; R73.01 Impaired fasting glucose
CPT/HCPCS: 36415; 80048; 80061; 83036; 84450; 84460; 85025

== ENCOUNTER 2025-06-09 10:54 | Outpatient (AMB) | payer OTHER, SELFPAY ==
--- NOTE | 2025-06-09 11:28 | A.OFFPC_ITS ---
Vital Signs 06/09/25 11:39 Height 5 ft 9 in Weight 195 lb BMI 28.8 BP 142/80 H Blood Pressure Location Rt brachial Position Sitting Respiration 15 Pulse 59 Pulse Source Pulse Oximeter Temp 97.9 F Temp Source Oral Pulse Oximetry (%) 99 Oxygen Delivery Method Room Air Intake Visit Reasons: Annual PE Intake Note: Pt is here today for his PE; last colonoscopy 08/18/23 Allergies No Known Allergies Allergy (Verified 06/09/25 11:59) Medication List - Last Reconciled 06/09/25 by Lorraine Urbano MD tadalafil 5 mg PO DAILY PRN Tobacco use date assessed: 06/09/25 Fall risk assessment: No Falls in past year Last assessed Fall Risk: 06/09/25 Dental Screening Dental Screen Date: 06/09/25 Did you have a dental visit in the last 12 months?: Yes Did you have a dental problem in the last 6 months where you did not have access to dental care?: No Was dental information given to patient?: Patient has dentist HPI Annual PE HPI Details 70-year-old male with history of hypertr iglyceridemia and impaired fasting glucose and obesity, here today for his physical exam. He currently is taking tadalafil for treatment of benign prostatic hyperplasia with erectile dysfunction. Had 2 adenomatous polyps removed by Dr. Andrea on last colonoscopy done in 2022, due for repeat colonoscopy again in 2027. Blood pressure today is elevated, currently not on antihypertensive medication. Has been feeling well otherwise with no complaints of any headache, no lightheadedness, no chest pain or shortness of breath. Had recent fasting labs done which showed elevated fasting glucose in the diabetic range. [facility] Medical History (Updated 06/16/25 @ 03:26 by Lorraine Urbano MD) Essential hypertension Anemia History of adenomatous polyp of colon Bleeding hemorrhoid Mixed dyslipidemia Diabetes mellitus with hyperglycemia Impaired fasting glucose Obesity (BMI 30.0-34.9) Benign prostatic hyperplasia Surgical History Hx of colonoscopy History of vasectomy Family History Sister Rheumatoid arthritis Son Autism Social History Household Members: Spouse and Children Housing: Apartment Do you presently have visiting nurse or other home services: No Alcohol intake: current Alcohol intake frequency: a few times a week Alcohol type: wine Patient Tobacco Use Status: Former Tobacco user Tobacco use type: Cigar e-Cigarette/Vaping Use: Never Used Second Hand Smoke Exposure: No Substance Use Type: Marijuana service: No Current occupational status: employed Cognitive needs: No Hearing needs: No Vision needs: Yes Questionnaire PHQ-9 Over the last 2 weeks, how often have you been bothered by any of the following problems? 1. Little interest or pleasure in doing things: not at all 2. Feeling down, depressed, or hopeless: not at all 3. Trouble falling or staying asleep, or sleeping too much: not at all 4. Feeling tired or having little energy: not at all 5. Poor appetite or overeating: not at all 6. Feeling bad about yourself - or that you are a failure or have let yourself or your family down: not at all 7. Trouble concentrating on things, such as reading the newspaper or watching television: not at all 8. Moving or speaking so slowly that other people could have noticed. Or the opposite - being so fidgety or restless that you have been moving around a lot more than usual: not at all 9. Thoughts that you would be better off or of hurting yourself in some way: not at all Total score: 0 Depression Screening Interpretation: Negative Depression Screening Done: Yes 09196 - PHQ-9 Billing: Yes Source: Developed by Drs. Chilango Winchester, Lolly Soares, Geoffrey Estrada and colleagues, with an educational christiana from [employer]. Thrive Questionnaire Date Thrive assessed: 06/06/25 I am a: Patient What is your living situation today?: I have a steady place to live Within the past 12 months, did the food you bought not last and you didn't have the money to get more?: Never true Within the past 12 months, did you worry whether your food would run out before you got money to buy more?: Never true Do you have trouble paying for medicines?: No Do you have trouble getting transportation to medical appointments?: No Do you have trouble paying your heating and electricity bill?: No Do you have trouble taking care of your child, family member or friend?: No Do you have trouble with day-to-day activities such as bathing, preparing meals, shopping, managing finances, etc.?: No Are you currently unemployed and looking for a job?: No Are you interested in more education?: No Please select the resources that you would like help with: None Currently or been in a relationship where the following occur: No concerns reported THRIVE Score: 0 AUDIT C Alcohol Use Questionnaire (AUDIT-C) 1. How often do you have a drink containing alcohol?: 2-3 times a week 2. How many drinks containing alcohol do you have on a typical day when you are drinking?: 3 or 4 3. How often do you have six or more drinks on one occasion?: Monthly Total Score: 6 Score Reviewed/Action Taken: Yes CARLITO-7 AMB Questionnaire CARLITO-7 Date CARLITO - 7 assessed: 06/09/25 Feeling nervous, anxious, or on edge: 0 = Not at all Not being able to stop or control worryin = Not at all Worrying too much about different things: 0 = Not at all Trouble relaxin = Not at all Being so restless that it is hard to sit still: 0 = Not at all Becoming easily annoyed or irritable: 0 = Not at all Feeling afraid as if something awful might happen: 0 = Not at all Total CARLITO-7 score (0-4 normal; 5-9 mild; 10-14 moderate; 15-21 severe): 0 Source: Developed by Drs. Chilango Winchester, Lolly Soares, Geoffrey Estrada and colleagues, with an educational christiana from [employer]. CARLITO-7 Assessment Billing CARLITO-7 Assessment Tool: CARLITO-7 Assessment 30480 Review of Systems Const Denies chills, Denies fatigue, Denies fever(s), Denies headache(s), Denies lethargy and Denies weakness Eyes Details: wears cheaters ENT Denies headache(s) Card Reports no additional complaints Resp Reports no additional complaints GI Denies melena, Denies bloating, Denies hematochezia, Denies change in bowel habits and Denies nausea Denies hematuria, Denies dysuria, Denies penile discharge, Denies scrotal swelling, Denies testicular mass, Denies testicular pain and Denies urinary frequency Musc Reports as per HPI Skin/Breast Denies lesions and Denies rash Neuro Denies headache(s) and Denies weakness Psych Reports no additional complaints Endo Denies fatigue Ferny/Lymph Reports no additional complaints Aller/Immun Reports no additional complaints Physical exam (Primary Care) Vital Signs: Last Vital Signs Temp 97.9 F 06/09/25 11:39 Pulse 59 06/09/25 11:39 Resp 15 06/09/25 11:39 BP 142/80 H 06/09/25 11:39 Pulse Ox 99 06/09/25 11:39 Oxygen Delivery Method Room Air 06/09/25 11:39 BMI result Body Mass Index 28.8 BMI Assessment/Plan discussion: High BMI High, discussed plan: lifestyle, weight reduction, dietary and physical activity Tobacco/Smoking Status: Tobacco use Status Tobacco use date assessed 06/09/25 06/09/25 11:42 Patient Tobacco Use Status Former Tobacco user 06/09/25 11:30 Tobacco use type Cigar 06/09/25 11:30 e-Cigarette/Vaping Use Never Used 06/09/25 11:30 Are you ready to quit: No PHQ-9: PHQ-9 Score PHQ-9: Total score 0 06/09/25 12:00 Depression Screening Interpretation: Negative Thrive Assessment: Date of Thrive Assessment Date Thrive assessed 06/06/25 06/09/25 11:30 Currently or been in a relationship where the following occur: No concerns reported Advance Care Planning discussion: Completed/Scanned Date of discussion: 06/09/25 Who was present: Patient Forms completed: Health Care Proxy Time spent: 16-45 minutes Actual minutes spent: 2 Const General: cooperative, comfortable, no acute distress, alert and awake Nutritional Appearance: obese Orientation/consciousness: patient oriented x3 Limitations: no limitations [facility] Head: Yes normocephalic and Yes atraumatic Ears: hearing grossly normal bilaterally and external ears normal General nose exam: Normal external nose present and No nasal discharge present Face and sinus: Yes face symmetric Mouth: Normal oral and palatal mucosa present, tongue normal, oropharynx normal and moist mucous membranes Eyes General: appearance normal, both eyes and all related structures Neck Neck: Yes full ROM, Yes no lymphadenopathy and Yes supple Thyroid: Thyroid normal Chest Chest palpation & inspection: normal inspection of the chest Resp Effort & Inspection: normal respiratory effort and able to speak in complete sentences Auscultation: clear to auscultation bilaterally Cardio Palpation: normal PMI Rate: regular rate Rhythm: regular rhythm Heart sounds: S1 normal heart sound present and S2 normal heart sound present GI Other: Normal bowel sounds, soft, slight tenderness on palpation over bilateral lower quadrants, no mass palpated., external hemorrhoid present non thrombosed no active bleed seen Inspection: Yes obesity Palpation (GI): Soft to palpation, no guarding, no hernias and no masses Auscultation: normal bowel sounds General: Yes no CVA tenderness Male General Exam: Yes normal external exam Penis: normal penis Back/Spine/Pelvis Back: no CVA tenderness and No back tenderness Skin General skin exam: no rashes or lesions noted Neuro General: patient oriented x3, gait normal, tone normal, moves all extremities, Normal light touch and pain sensation, no focal motor deficits and CN's II-XI intact bilaterally Gait exam (Neuro): Normal gait present Motor exam (neuro): 5/5 motor strength present throughout Extrem General: Yes full ROM, Yes no joint enlargement, Yes no clubbing, cyanosis or edema, Yes no calf tenderness and Yes normal gait Psych Appearance: grossly normal and well kempt Mental Status: mental status grossly normal Speech and movement: Normal speech and movement present Affect: normal affect Attitude: cooperative Thought process: Normal thought process present Thought content: Normal thought content present Results Reviewed Results Reviewed: Name: Quirino Mares Age/Sex: 70/M : 1955 Unit#: [id number] Attend Dr: Lorraine Urbano MD Re06/07/25 Status: DEP REF Location: [facility] Disch: SPEC : [id number] RADU: 06/07/25 STATUS: COMP REQ : [id number] RECD: 06/07/[address]: Lorraine Urbano MD COMP: 06/07/25 ENTERED: 06/07/[address] [facility] [address]: ORDERED: CBC Auto Diff Test Result Flag Reference WBC 4.6 L 4.8-10.8 X10*3/uL RBC 4.35 L 4.60-5.80 X10*6/uL HGB 13.9 L 14.0-18.0 g/dl HCT 40.8 L 42.0-52.0 % MCV 93.8 80.0-98.0 fL MCH 32.0 27.0-33.0 pg MCHC 34.1 31.0-36.0 g/dl RDW 13.4 11.0-16.0 % PLT 250 160-400 X10*3/uL MPV 9.3 L 9.4-12.4 fL Neut Pct Auto 41.2 L 45-73 % ImGran Pct Auto 0.2 0.0-0.4 % Lymp Pct Auto 46.8 H 20-40 % Wise Pct Auto 6.7 2-11 % Eos Pct Auto 4.5 H 0-4 % Baso Pct Auto 0.6 0-2 % NRBC Pct Auto 0.0 0.0-0.2 /100WBC ANC Neut Abs # 1.9 L 2.0-8.3 x10*3/uL ImGran Abs Auto 0.01 0.00-0.03 X10*3 /uL Lymph Abs Auto 2.2 1.2-4.9 X10*3/uL Wise Abs Auto 0.3 0.1-1.2 X10*3/uL Eos Abs Auto 0.2 0.0-0.4 X10*3/uL Baso Abs Auto 0.0 0.0-0.2 X10*3/uL NRBC Abs Auto 0.000 0.0-0.012 X10*3/uL Name: Quirino Mares Age/Sex: 70/M : 1955 Unit#: [id number] Attend Dr: Lorraine Urbano MD Re06/07/25 Status: DEP [facility] Disch: SPEC : [id number] RADU: 06/07/25 STATUS: COMP REQ : [id number] RECD: 06/07/25-[address]: Lorraine Urbano MD COMP: 06/07/25 ENTERED: 06/07/25-[address]: ORDERED: Met Prof Fast, AST, ALT, Lipid Panel Test Result Flag Reference Sodium 139 135-145 mmol/L Potassium 4.2 3.3-5.1 mmol/L CL 105 96-108 mmol/L CO2 28 22-29 mmol/L Gap 10 L 12-20 BUN 13 9-16 mg/dL Creat 0.96 0.5-1.4 mg/dL eGFR > 60 Chronic Kidney Disease: Estimated GFR < 60 mL/min/1.73m2 Severe Kidney Disease: Estimated GFR < 15 mL/min/1.73m2 FBS 115 H 60-99 mg/dL A fasting glucose from 100-125 mg/dl is considered impaired (pre-diabetes). CA 9.2 8.4-10.2 mg/dL AST (GOT) 26 5-37 U/L ALT (GPT) 14 0-40 U/L Triglyceride 249 H <150 mg/dL Desirable Triglyceride: less than 150 mg/dL Borderline High Triglyceride 150-199 mg/dL High Triglyceride: 200-499 mg/dL Very High Triglyceride: greater than or equal to 5OO mg/dL Cholesterol 212 H <200 mg/dL Desirable Cholesterol: less than 200 mg/dL Borderline High Cholesterol: 200-239 mg/dL High Cholesterol: greater than 239 mg/dL LDL Calculated 120 H <100 mg/dL Desirable LDL: less than 100 mg/dL Near Optimal/Above Optimal LDL: 110-129 mg/dL Borderline High LDL: 130-159 mg/dL High LDL: 160-189 mg/dL Very High LDL: greater than or equal to 190 mg/dL HDL 43 >40 mg/dL Desirable HDL: greater than 40 mg/dL Note: This HDL assay may give artificially low results in patients with liver disease. Laboratory Tests 05/22/24 06/07/25 06:16 08:08 Estimat Average Glucose 128 143 Hemoglobin A1c % 6.1 H 6.6 H Coding Level of Care Code Est Pt Prev Care >65y(45438) Diagnoses Type 2 diabetes mellitus with hyperglycemia, without long-term current use of insulin E11.65 Diabetes mellitus type: type 2 Diabetes mellitus technician terminal and repeater insulin use: without technician terminal and repeater use Mixed dyslipidemia E78.2 Bleeding hemorrhoid K64.9 History of adenomatous polyp of colon Z86.0101 Anemia, unspecified type D64.9 Anemia type: unspecified type Essential hypertension I10 Annual visit for general adult medical examination with abnormal findings Z00.01 Advance directive discussed with patient Z71.89 Additional Codes CARLITO-7 Assessment Billing - CARLITO-7 Assessment Tool: CALRITO-7 Assessment 46355 ([id number]) PHQ-9 - 61950 - PHQ-9 Billing: Yes ([id number]) Vital Signs *Quality* - Advance Care Planning discussion: Completed/Scanned ([id number]) Vital Signs *Quality* - Time spent: 16-45 minutes ([id number]) Assessment & Plan Assessment & Plan (1) Diabetes mellitus with hyperglycemia: Code(s): E11.65 - Type 2 diabetes mellitus with hyperglycemia Category: Medical Qualifiers: Diabetes mellitus type: type 2 Diabetes mellitus technician terminal and repeater insulin use: without technician terminal and repeater use Qualified Code(s): E11.65 - Type 2 diabetes mellitus with hyperglycemia Plan: Latest fasting labs showed hemoglobin A1c now at 6.5% with an average glucose of 143 mg/dL in the past 3 months. Patient was started on metformin ER 500 mg to take 1 tablet at night with supper. Advised to check fasting blood sugar before meals, maintain log and bring to next appointment for review. Referred to nurse navigator for diabetic education stressed importance of following diabetic diet and regular exercise with patient. Counseled regarding importance of yearly diabetes retinopathy screening. Patient advised to inspect feet daily, for any signs of injury, callus or infection. Compliance with diet and regular exercise again stressed. Blood pressure goal is less than 130/80, goal LDL is less than 100 and goal hemoglobin A1c is less than 7% follow-up appointment made in-3--months, after fasting labs done. (2) Mixed dyslipidemia: Code(s): E78.2 - Mixed hyperlipidemia Category: Medical Plan: Reviewed recent fasting lipid profile with patient with elevated lipid levels. Goal LDL cholesterol is less than 100 mg/dL. Started on rosuvastatin 5 mg once every other day for the next 3 months and reinforced importance of adherence to low-cholesterol diet and regular exercise, at least 30 minutes 3 to 4 times a week. Advised patient to make healthy food choices, eat more fruits, vegetables, whole grains, wild caught fish and low-fat dairy. Limit amount of meat and fried or fatty food products, as well as processed foods and fast foods. Follow-up scheduled with repeat fasting lipid panel in 3 months. (3) Bleeding hemorrhoid: Code(s): K64.9 - Unspecified hemorrhoids Category: Medical Plan: Referred to general surgery (4) History of adenomatous polyp of colon: Code(s): Z86.0101 - Personal history of adenomatous and serrated colon polyps Category: Medical Plan: Repeat screening colonoscopy again in 2027 (5) Anemia: Code(s): D64.9 - Anemia, unspecified Category: Medical Qualifiers: Anemia type: unspecified type Qualified Code(s): D64.9 - Anemia, unspecified Plan: Likely due to hemorrhoidal bleed. Repeat CBC and iron profile in 3 months. Advised to eat green leafy vegetables, and incorporate more iron rich foods in diet (6) Essential hypertension: Code(s): I10 - Essential (primary) hypertension Category: Medical Plan: Blood pressure elevated today goal blood pressure less than 130/80. Will start on losartan 50 mg daily. Stressed importance of adhering to a low-salt diet and getting regular exercise (7) Annual visit for general adult medical examination with abnormal findings: Code(s): Z00.01 - Encounter for general adult medical examination with abnormal findings Plan: Fasting lab results reviewed with patient.. Recommended dental visit every 6 months and and will eye exam to check for diabetes retinopathy and routine screening. Take adequate calcium in diet and vitamin-D 3 at 2000 IU per cap once a day, in addition to weight-bearing exercises to help maintain good muscle tone and weight control. Instructed to do self testicular exam check for any mass. Flu shot given today. Already received this Prevnar 20 vaccine, advised to get his shingles vaccine and updated tetanus booster (8) Advance directive discussed with patient: Code(s): Z71.89 - Other specified counseling Plan: Initiated the conversation about Advanced Directives. Advanced Directives help patients prepare for current and future decisions about their medical treatment and place of care. Discussed with patient that it is a process where a patients current condition and prognosis are reviewed, their wishes for information rega rding their illness are elicited, and likely medical dilemmas are presented and options discussed. Healthcare proxy form completed today. The form can be amended as needed, reviewed yearly and make changes as needed Orders: Orders Hemoglobin A1c 3 Months D64.9 - Anemia, unspecified, E11.65 - Type 2 diabetes mellitus with hyperglycemia, E78.2 - Mixed hyperlipidemia, I10 - Essential (primary) hypertension Basic Metabolic Panel Fasting 3 Months D64.9 - Anemia, unspecified, E11.65 - Type 2 diabetes mellitus with hyperglycemia, E78.2 - Mixed hyperlipidemia, I10 - Essential (primary) hypertension Aspartate Amino Transferase 3 Months D64.9 - Anemia, unspecified, E11.65 - Type 2 diabetes mellitus with hyperglycemia, E78.2 - Mixed hyperlipidemia, I10 - Essential (primary) hypertension Microalbumin, Random (w Creat) 3 Months D64.9 - Anemia, unspecified, E11.65 - Type 2 diabetes mellitus with hyperglycemia, E78.2 - Mixed hyperlipidemia, I10 - Essential (primary) hypertension Lipid Panel 3 Months D64.9 - Anemia, unspecified, E11.65 - Type 2 diabetes mellitus with hyperglycemia, E78.2 - Mixed hyperlipidemia, I10 - Essential (primary) hypertension IRON PROFILE 3 Months D64.9 - Anemia, unspecified, E11.65 - Type 2 diabetes mellitus with hyperglycemia, E78.2 - Mixed hyperlipidemia, I10 - Essential (primary) hypertension Alanine Aminotransferase 3 Months D64.9 - Anemia, unspecified, E11.65 - Type 2 diabetes mellitus with hyperglycemia, E78.2 - Mixed hyperlipidemia, I10 - Essential (primary) hypertension Referrals General Surgery Referral K64.9 - Unspecified hemorrhoids Medications: New 2 metformin ER (Glucophage XR) 500 mg PO QPM 90 tabs 1RF E11.65 - Type 2 diabetes mellitus with hyperglycemia, E78.2 - Mixed hyperlipidemia losartan 50 mg PO DAILY 30 tabs 5RF rosuvastatin 5 mg PO Q2D 45 tabs 3RF 3 months
[2025-06-09 11:39] VITALS: BP 142/80; PULSE 59; RESP 15; TEMP 36.6; O2SAT 99; BMI 28.8
== END 2025-06-09 12:28 | disposition home or self-care (01) ==
LOC: HO.HMCC 10:55
PROVIDERS: PCP Internal Medicine; Visit Provider Internal Medicine
DX: E11.65 Type 2 diabetes mellitus with hyperglycemia (principal); E78.2 Mixed hyperlipidemia; K64.9 Unspecified hemorrhoids; Z86.0101 Personal history of adenomatous and serrated colon polyps; D64.9 Anemia, unspecified; I10 Essential (primary) hypertension; Z00.01 Encounter for general adult medical examination with abnormal findings; Z71.89 Other specified counseling; Z00.00 Encounter for general adult medical examination without abnormal findings

== ENCOUNTER → 2025-06-09 10:54 | Outpatient (BNVA) | payer OTHER, SELFPAY | PROVIDERS: PCP Internal Medicine; Visit Provider Internal Medicine | DX: Z00.01 Encounter for general adult medical examination with abnormal findings (principal); E78.1 Pure hyperglyceridemia; E66.9 Obesity, unspecified; E11.65 Type 2 diabetes mellitus with hyperglycemia; E78.2 Mixed hyperlipidemia; K64.9 Unspecified hemorrhoids; D64.9 Anemia, unspecified; I10 Essential (primary) hypertension; Z71.89 Other specified counseling; Z86.0101 Personal history of adenomatous and serrated colon polyps | CPT/HCPCS: 96127 ==

== ENCOUNTER 2025-06-19 09:39 | Outpatient (AMB) | payer OTHER, SELFPAY ==
[2025-06-19 09:46] VITALS: BP 141/74; PULSE 61; BMI 29.4
--- NOTE | 2025-06-19 09:46 | MHC.OFFVIS ---
Vital Signs 06/19/25 09:46 Height 5 ft 9 in Weight 199 lb 4 oz BMI 29.4 BP 141/74 H Blood Pressure Location Rt brachial Position Sitting Pulse 61 Intake Visit Reasons: hemorrhoids Intake Note: This patient presents for hemorrhoids assessment. Pt c/o; reports no rectal bleeding or pain. 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 He says that he sees bright blood per rectum after bowel movements frequently. He says that he had a colonoscopy about 2 years ago and he was told he had hemorrhoids He was also told that his hemoglobin was 13.9 which is a little the low side. He was therefore referred to me He denies any shortness of breath. Denies any systemic symptoms. He says he feels well overall. He denies being constipated . He denies any pain or swelling in his anus. [facility] Medical History (Updated 06/16/25 @ 03:26 by Lorraine Urbano MD) Essential hypertension Anemia History of adenomatous polyp of colon Bleeding hemorrhoid Mixed dyslipidemia Diabetes mellitus with hyperglycemia Impaired fasting glucose Obesity (BMI 30.0-34.9) Benign prostatic hyperplasia Surgical History Hx of colonoscopy History of vasectomy Family History Sister Rheumatoid arthritis Son Autism Social History Household Members: Spouse and Children Housing: Apartment Do you presently have visiting nurse or other home services: No Alcohol intake: current Alcohol intake frequency: a few times a week Alcohol type: wine Patient Tobacco Use Status: Former Tobacco user Tobacco use type: Cigar e-Cigarette/Vaping Use: Never Used Second Hand Smoke Exposure: No Substance Use Type: Marijuana service: No Current occupational status: employed Cognitive needs: No Hearing needs: No Vision needs: Yes Review of Systems Const Denies chills and Denies fever(s) Card Denies chest pain, Denies dyspnea and Denies dyspnea on exertion Resp Denies cough, Denies dyspnea and Denies dyspnea on exertion GI Reports hematochezia and Denies change in bowel habits Denies hematuria and Denies difficulty urinating Musc Denies back pain and Denies limited range of motion Neuro Denies focal weakness and Denies convulsions Psych Denies depression and Denies mood swings Physical Exam Vital Signs: Last Vital Signs Pulse 61 06/19/25 09:46 BP 141/74 H 06/19/25 09:46 BMI result Body Mass Index 29.4 Const General: comfortable and no acute distress Orientation/consciousness: patient oriented x3 Neck Neck: Yes no lymphadenopathy Resp Auscultation: clear to auscultation bilaterally Cardio Rhythm: regular rhythm GI Other: Rectal exam shows some external hemorrhoids, non bulky Palpation (GI): Soft to palpation, nontender and no guarding Neuro General: patient oriented x3 Office Procedures Anoscopy He was in kneeling jean-knife position. The anoscope was gently inserted. A full examination of the anal canal was done. He had non bulky internal and external hemorrhoids. There were no lesions seen. There was no fissure ulceration. There was no blood on the exam finger. There was no induration. [id number] Assessment & Plan Assessment & Plan (1) Bleeding hemorrhoid: Code(s): K64.9 - Unspecified hemorrhoids Category: Medical Plan: He describes frequent passage of bright blood per rectum after bowel movements. Denies any pain or swelling. Overall clinical presentation is consistent with outlet bleeding from his hemorrhoids Examination and anoscopy shows internal and external hemorrhoids although these are non bulky. I explained to him the option of hemorrhoidectomy. I discussed the technique of this procedure. I reviewed the risks including but not limited to bleeding, infections and postop pain. He understands and says he would like to hold off on surgery for now. I told him to come back to the office if he feels that his bleeding is becoming more severe I will send him a prescription for Metamucil. Coding Level of Care Code New Pt Level 3 (82331) Diagnoses Bleeding hemorrhoid K64.9 CPT Codes Details - CPT: 87585-[id number] ([id number])
== END 2025-06-19 10:17 | disposition home or self-care (01) ==
LOC: HO.HGS 09:40
PROVIDERS: PCP Internal Medicine; Visit Provider Surgery
DX: K64.9 Unspecified hemorrhoids (principal)
CPT/HCPCS: 46600; 99213

== ENCOUNTER → 2025-06-19 09:39 | Outpatient (BNVA) | payer OTHER, SELFPAY | PROVIDERS: PCP Internal Medicine; Visit Provider Surgery | DX: K64.9 Unspecified hemorrhoids (principal) | CPT/HCPCS: 46600 ==

== ENCOUNTER 2025-08-11 15:25 | Outpatient (AMB) | payer OTHER, SELFPAY ==
[2025-08-11 15:45] VITALS: BP 130/66; PULSE 75; RESP 16; TEMP 36.7; O2SAT 98; BMI 29.2
--- NOTE | 2025-08-11 15:45 | A.OFFPC_ITS ---
Vital Signs 08/11/25 15:45 Height 5 ft 9 in Weight 198 lb BMI 29.2 BP 130/66 Blood Pressure Location Rt brachial Position Sitting Respiration 16 Pulse 75 Pulse Source Pulse Oximeter Temp 98.0 F Temp Source Oral Pulse Oximetry (%) 98 Oxygen Delivery Method Room Air Intake Visit Reasons: referral for skin Intake Note: Pt is here today request referral for derm: Has dry spots on legs and feet Jd Edwards Required: No Allergies No Known Allergies Allergy (Verified 08/11/25 16:04) Medication List - Last Reconciled 08/11/25 by Lorraine Urbano MD losartan 50 mg PO DAILY metformin ER (Glucophage XR) 500 mg PO QPM rosuvastatin 5 mg PO Q2D 3 months tadalafil 5 mg PO DAILY PRN Tobacco use date assessed: 08/11/25 Fall risk assessment: No Falls in past year Last assessed Fall Risk: 08/11/25 Dental Screening Dental Screen Date: 08/11/25 Did you have a dental visit in the last 12 months?: Yes Did you have a dental problem in the last 6 months where you did not have access to dental care?: No Was dental information given to patient?: Patient has dentist HPI referral for skin HPI Details The patient is a 70 year old individual presenting with dry and c racking skin on the feet. The patient reports having dry, cracking skin on both feet, with the condition being more pronounced on the left heel. The issue reportedly started small and then spread, and the patient feels it was aggravated by the patient's using a foot cleaning machine. The patient has been applying Dr. Gallegos's moisturizer cream, which causes the skin to thicken and then peel off, but it has not provided any lasting improvement. The patient applies a cream daily but does not soak the feet in Epsom salt and has never used Aquaphor. The patient also notes hard spots under the skin, which were identified as calluses, and a black discoloration on one toenail. The patient has a known history of diabetes. [facility] Medical History Essential hypertension Anemia History of adenomatous polyp of colon Bleeding hemorrhoid Mixed dyslipidemia Diabetes mellitus with hyperglycemia Impaired fasting glucose Obesity (BMI 30.0-34.9) Benign prostatic hyperplasia Surgical History Hx of colonoscopy History of vasectomy Family History Sister Rheumatoid arthritis Son Autism Social History Household Members: Spouse and Children Housing: Apartment Do you presently have visiting nurse or other home services: No Alcohol intake: current Alcohol intake frequency: a few times a week Alcohol type: wine Patient Tobacco Use Status: Former Tobacco user Tobacco use type: Cigar e-Cigarette/Vaping Use: Never Used Second Hand Smoke Exposure: No Substance Use Type: Marijuana service: No Current occupational status: employed Cognitive needs: No Hearing needs: No Vision needs: Yes Questionnaire Thrive Questionnaire Date Thrive assessed: 06/06/25 I am a: Patient What is your living situation today?: I have a steady place to live Within the past 12 months, did the food you bought not last and you didn't have the money to get more?: Never true Within the past 12 months, did you worry whether your food would run out before you got money to buy more?: Never true Do you have trouble paying for medicines?: No Do you have trouble getting transportation to medical appointments?: No Do you have trouble paying your heating and electricity bill?: No Do you have trouble taking care of your child, family member or friend?: No Do you have trouble with day-to-day activities such as bathing, preparing meals, shopping, managing finances, etc.?: No Are you currently unemployed and looking for a job?: No Are you interested in more education?: No Please select the resources that you would like help with: None Currently or been in a relationship where the following occur: No concerns reported THRIVE Score: 0 CARLITO-7 AMB Questionnaire CARLITO-7 Date CARLITO - 7 assessed: 06/09/25 Source: Developed by Drs. Chilango Winchester, Lolly Soares, Geoffrey Estrada and colleagues, with an educational christiana from [employer]. Review of Systems Const All systems reviewed & are unremarkable except as noted in HPI and below Physical exam (Primary Care) Vital Signs: Last Vital Signs Temp 98.0 F 08/11/25 15:45 Pulse 75 08/11/25 15:45 Resp 16 08/11/25 15:45 BP 130/66 08/11/25 15:45 Pulse Ox 98 08/11/25 15:45 Oxygen Delivery Method Room Air 08/11/25 15:45 BMI result Body Mass Index 29.2 Tobacco/Smoking Status: Tobacco use Status Tobacco use date assessed 08/11/25 08/11/25 15:50 Patient Tobacco Use Status Former Tobacco user 08/11/25 15:50 Tobacco use type Cigar 08/11/25 15:50 e-Cigarette/Vaping Use Never Used 08/11/25 15:50 Thrive Assessment: Date of Thrive Assessment Date Thrive assessed 06/06/25 08/11/25 15:50 Currently or been in a relationship where the following occur: No concerns reported Extrem Other: xerosis with cracking, more pronounced on the left heel. - Calluses are present. - A black discoloration is noted on one toenail. Coding Level of Care Code Est Pt Level 4 (14775) Diagnoses Pebbly lichenification of skin L28.0 Assessment & Plan Assessment & Plan (1) Pebbly lichenification of skin: Code(s): L28.0 - Lichen simplex chronicus Plan: patient was instructed to soak the feet daily for 15 minutes in Epsom salt water, pat them dry, and apply Aquaphor ointment. The patient was advised against using a pumice stone or excessive exfoliation to prevent skin injury. A stat referral to Podiatry will be made for further evaluation and management of the foot condition and the discolored toenail. Orders: Referrals Podiatry Referral E11.65 - Type 2 diabetes mellitus with hyperglycemia, L28.0 - Lichen simplex chronicus
== END 2025-08-11 16:16 | disposition home or self-care (01) ==
LOC: HO.HMCC 15:26
PROVIDERS: PCP Internal Medicine; Visit Provider Internal Medicine
DX: L28.0 Lichen simplex chronicus (principal)

== ENCOUNTER 2025-09-13 07:26 | Outpatient (REF) | payer OTHER, SELFPAY ==
[2025-09-13 11:32] LABS: Alanine Aminotransferase 21 U/L (0-40); Anion Gap 13 (12-20); Aspartate Amino Transferase 30 U/L (5-37); Blood Urea Nitrogen 15 mg/dL (9-16); Calcium 9.0 mg/dL (8.4-10.2); Carbon Dioxide 26 mmol/L (22-29); Chloride 105 mmol/L (96-108); Cholesterol 196 mg/dL (<200); Estimated Glomerular Filt Rate > 60; HDL Cholesterol 43 mg/dL (>40); Iron 89 mcg/dL (45-160); Percent Iron Saturation 34 % (15-50); Potassium 4.1 mmol/L (3.3-5.1); Sodium 140 mmol/L (135-145); Total Iron Binding Capacity 264 mcg/dL (228-428); Triglycerides 240 mg/dL (<150); Unsaturated Iron Binding 175 ug/dL
[2025-09-13 11:38] LABS: Microalbum/Creatinine Ratio Ur 7.3 ug/mg cr (<30)
== END 2025-09-13 07:27 | disposition home or self-care (01) ==
LOC: HO.HMGCLDS 07:26
PROVIDERS: PCP Internal Medicine; Visit Provider Internal Medicine
DX: E78.2 Mixed hyperlipidemia (principal); I10 Essential (primary) hypertension; E11.65 Type 2 diabetes mellitus with hyperglycemia; D64.9 Anemia, unspecified
CPT/HCPCS: 36415; 80048; 80061; 82043; 82570; 83036; 83540; 84450; 84460

== ENCOUNTER 2025-09-15 15:37 | Outpatient (AMB) | payer OTHER, SELFPAY ==
[2025-09-15 15:39] VITALS: BP 132/70; PULSE 77; O2SAT 98; BMI 29.7
--- NOTE | 2025-09-15 15:39 | A.OFFPC_ITS ---
Vital Signs 09/15/25 15:39 Height 5 ft 9 in Weight 201 lb BMI 29.7 BP 132/70 Blood Pressure Location Lt brachial Position Sitting Pulse 77 Pulse Source Pulse Oximeter Pulse Oximetry (%) 98 Oxygen Delivery Method Room Air Intake Visit Reasons: follow up after fasting labs Produce Department Manager Required: No Allergies No Known Allergies Allergy (Verified 09/15/25 16:19) Medication List - Last Reconciled 09/15/25 by Lorraine Urbano MD losartan 50 mg PO DAILY metformin ER (Glucophage XR) 500 mg PO QPM rosuvastatin 5 mg PO Q2D 3 months tadalafil 5 mg PO DAILY PRN Tobacco use date assessed: 08/11/25 Fall risk assessment: No Falls in past year Last assessed Fall Risk: 09/15/25 Dental Screening Dental Screen Date: 08/11/25 HPI follow up after fasting labs HPI Details 70 year old male with history of hyperte nsion, diabetes mellitus and dyslipidemia, here today for a follow-up visit. Blood pressure and lipids are stable and controlled on present regimen of losar ruth and rosuvastatin. He reports a recent weight gain, with his current weight at 198 pounds. Recent lab results show improvement in his glycemic control, with his sugar levels now below the 6.5 threshold. His lipid panel shows that his total cholesterol and LDL cholesterol have decreased, but his triglycerides remain elevated at 240. He reports drinking wine occasionally. He has a history of mild anemia, with a recent hemoglobin of 13.9, which he reports may be related to occasionally bleeding hemorrhoids. Last colonoscopy done in 2022 revealed presence of adenomatous polyp of colon, due for a repeat colonoscopy next year. The patient reports new-onset itchy, dry spots on his skin, including a lesion on his hand that started small and has been expanding, and peeling skin on his foot. He has tried Epsom salts at home without any improvement in his foot symptoms. [facility] Medical History (Updated 09/20/25 @ 23:21 by Lorraine Urbano MD) Tinea Diabetes mellitus type 2, controlled Essential hypertension Anemia History of adenomatous polyp of colon Bleeding hemorrhoid Mixed dyslipidemia Impaired fasting glucose Obesity (BMI 30.0-34.9) Benign prostatic hyperplasia Surgical History Hx of colonoscopy History of vasectomy Family History Sister Rheumatoid arthritis Son Autism Social History Household Members: Spouse and Children Housing: Apartment Do you presently have visiting nurse or other home services: No Alcohol intake: current Alcohol intake frequency: a few times a week Alcohol type: wine Patient Tobacco Use Status: Former Tobacco user Tobacco use type: Cigar e-Cigarette/Vaping Use: Never Used Second Hand Smoke Exposure: No Substance Use Type: Marijuana service: No Current occupational status: employed Cognitive needs: No Hearing needs: No Vision needs: Yes Questionnaire Thrive Questionnaire Date Thrive assessed: 06/06/25 I am a: Patient What is your living situation today?: I have a steady place to live Within the past 12 months, did the food you bought not last and you didn't have the money to get more?: Never true Within the past 12 months, did you worry whether your food would run out before you got money to buy more?: Never true Do you have trouble paying for medicines?: No Do you have trouble getting transportation to medical appointments?: No Do you have trouble paying your heating and electricity bill?: No Do you have trouble taking care of your child, family member or friend?: No Do you have trouble with day-to-day activities such as bathing, preparing meals, shopping, managing finances, etc.?: No Are you currently unemployed and looking for a job?: No Are you interested in more education?: No Currently or been in a relationship where the following occur: No concerns reported THRIVE Score: 0 CARLITO-7 AMB Questionnaire CARLITO-7 Date CARLITO - 7 assessed: 06/09/25 Source: Developed by Drs. Chilango Winchester, Lolly Soares, Geoffrey Estrada and colleagues, with an educational christiana from [employer]. Review of Systems Const Denies fatigue, Denies headache(s) and Denies weakness Eyes Details: wears reading glasses ENT Denies headache(s) Card Reports no additional complaints Resp Reports no additional complaints GI Denies melena, Denies bloating, Denies change in bowel habits and Denies nausea Denies hematuria, Denies dysuria and Denies urinary frequency Musc Reports no additional complaints Skin/Breast Reports as per HPI Neuro Denies headache(s) and Denies weakness Psych Reports no additional complaints Endo Denies fatigue Ferny/Lymph Reports no additional complaints Aller/Immun Reports no additional complaints Physical exam (Primary Care) Vital Signs: Last Vital Signs Pulse 77 09/15/25 15:39 BP 132/70 09/15/25 15:39 Pulse Ox 98 09/15/25 15:39 Oxygen Delivery Method Room Air 09/15/25 15:39 BMI result Body Mass Index 29.7 Tobacco/Smoking Status: Tobacco use Status Tobacco use date assessed 08/11/25 09/15/25 15:40 Patient Tobacco Use Status Former Tobacco user 09/15/25 15:40 Tobacco use type Cigar 09/15/25 15:40 e-Cigarette/Vaping Use Never Used 09/15/25 15:40 Thrive Assessment: Date of Thrive Assessment Date Thrive assessed 06/06/25 09/15/25 15:40 Currently or been in a relationship where the following occur: No concerns reported Const General: no acute distress and alert Nutritional Appearance: obese Orientation/consciousness: patient oriented x3 HENMT Head: Yes normocephalic Ears: external ears normal General nose exam: Normal external nose present Face and sinus: Yes face symmetric Mouth: Normal oral and palatal mucosa present and moist mucous membranes Eyes General: appearance normal, both eyes and all related structures Neck Neck: Yes full ROM, Yes no lymphadenopathy and Yes supple Thyroid: Thyroid normal Resp Effort & Inspection: normal respiratory effort and able to speak in complete sentences Auscultation: clear to auscultation bilaterally Cardio Rate: regular rate Rhythm: regular rhythm Heart sounds: S1 normal heart sound present and S2 normal heart sound present GI Inspection: Yes obesity Palpation (GI): Soft to palpation, no guarding and no masses Auscultation: normal bowel sounds Skin Other: Hyperpigmented macular patches wth central clearing on hands, legs, and peeling skin on feet Neuro General: patient oriented x3, gait normal, moves all extremities and no focal motor deficits Gait exam (Neuro): Normal gait present Extrem General: Yes full ROM, Yes no joint enlargement, Yes no clubbing, cyanosis or edema, Yes no calf tenderness and Yes normal gait Psych Appearance: grossly normal and well kempt Mental Status: mental status grossly normal Speech and movement: Normal speech and movement present Affect: normal affect Results Reviewed Results Reviewed: Name: Quirino Mares Age/Sex: 70/M : 1955 Unit#: [id number] Attend Dr: Lorraine Urbano MD Re09/13/25 Status: DEP [facility]F [facility] Disch: SPEC : [id number] RADU: 09/13/25 STATUS: COMP REQ : [id number] RECD: 09/13/25-[address]: Lorraine Urbano MD COMP: 09/13/25 ENTERED: 09/13/[address] [facility] [address]: ORDERED: Met Prof Fast, IRON PROF, AST, ALT, Lipid Panel Test Result Flag Reference Sodium 140 135-145 mmol/L Potassium 4.1 3.3-5.1 mmol/L CL 105 96-108 mmol/L CO2 26 22-29 mmol/L Gap 13 12-20 BUN 15 9-16 mg/dL Creat 0.97 0.5-1.4 mg/dL eGFR > 60 Chronic Kidney Disease: Estimated GFR < 60 mL/min/1.73m2 Severe Kidney Disease: Estimated GFR < 15 mL/min/1.73m2 FBS 114 H 60-99 mg/dL A fasting glucose from 100-125 mg/dl is considered impaired (pre-diabetes). CA 9.0 8.4-10.2 mg/dL Iron 89 45-160 mcg/dL TIBC 264 228-428 mcg/dL Saturation 34 15-50 % UIBC 175 ug/dL AST (GOT) 30 5-37 U/L ALT (GPT) 21 0-40 U/L Triglyceride 240 H <150 mg/dL Desirable Triglyceride: less than 150 mg/dL Borderline High Triglyceride 150-199 mg/dL High Triglyceride: 200-499 mg/dL Very High Triglyceride: greater than or equal to 5OO mg/dL Cholesterol 196 <200 mg/dL Desirable Cholesterol: less than 200 mg/dL Borderline High Cholesterol: 200-239 mg/dL High Cholesterol: greater than 239 mg/dL LDL Calculated 105 H <100 mg/dL Desirable LDL: less than 100 mg/dL Near Optimal/Above Optimal LDL: 110-129 mg/dL Borderline High LDL: 130-159 mg/dL High LDL: 160-189 mg/dL Very High LDL: greater than or equal to 190 mg/dL HDL 43 >40 mg/dL Desirable HDL: greater than 40 mg/dL Note: This HDL assay may give artificially low results in patients with liver disease. Laboratory Tests 09/13/25 07:30 Estimat Average Glucose 134 Hemoglobin A1c % 6.3 H Urine Creatinine 189.86 Urine Microalbumin 14.0 Microalb/Creat Ratio 7.3 Coding Level of Care Code Est Pt Level 4 (43376) Diagnoses Essential hypertension I10 Mixed dyslipidemia E78.2 Diabetes mellitus type 2, controlled E11.9 Tinea B35.9 History of adenomatous polyp of colon Z86.0101 Assessment & Plan Assessment & Plan (1) Essential hypertension: Code(s): I10 - Essential (primary) hypertension Category: Medical Plan: Continue with losartan 50 mg daily. Reinforced importance of following a low sodium diet, getting regular exercise, and lowering stress levels. (2) Mixed dyslipidemia: Code(s): E78.2 - Mixed hyperlipidemia Category: Medical Plan: Reviewed recent fasting lipid profile with patient with levels improving history levels, but triglycerides remains elevated. Continue rosuvastatin 5 mg taken 1 tablet every other day , in addition to adherence to low-cholesterol diet and regular exercise, at least 30 minutes 3 to 4 times a week. Advised patient to make healthy food choices, eat more fruits, vegetables, whole grains, wild caught fish and low-fat dairy. Limit amount of meat and fried or fatty food products, as well as processed foods and fast foods. Follow-up scheduled with repeat fasting lipid panel in 4 months. (3) Diabetes mellitus type 2, controlled: Code(s): E11.9 - Type 2 diabetes mellitus without complications Category: Medical Plan: Continue metformin ER 500 mg 1 tablet at night with supper. Reminded to get yearly diabetes retinopathy screening done. (4) Tinea: Code(s): B35.9 - Dermatophytosis, unspecified Category: Medical Plan: Prescription sent for ketoconazole 2% cream sparingly to affected areas twice a day for 10 days. (5) History of adenomatous polyp of colon: Code(s): Z86.0101 - Personal history of adenomatous and serrated colon polyps Category: Medical Plan: Referral to GI clinic ordered for repeat colonoscopy Orders: Referrals Gastroenterology Referral Z86.0101 - Personal history of adenomatous and serrated colon polyps Medications: New ketoconazole 2% 1 appl topical BID 30 grams 1RF 10 days
== END 2025-09-15 16:37 | disposition home or self-care (01) ==
LOC: HO.HMCC 15:38
PROVIDERS: PCP Internal Medicine; Visit Provider Internal Medicine
DX: I10 Essential (primary) hypertension (principal); E78.2 Mixed hyperlipidemia; E11.9 Type 2 diabetes mellitus without complications; B35.9 Dermatophytosis, unspecified; Z86.0101 Personal history of adenomatous and serrated colon polyps